=== PATIENT | female | born 1965 | race African-American/Black ===

== ENCOUNTER 2019-02-26 09:48 | Emergency (ER) | payer OTHER ==
[~2019-02-26] VITALS: Ht 182.9 cm; Wt 113.4 kg
--- OUTSIDE RECORDS SUMMARY | 2019-02-26 09:52 | XMS REPORT ---
Author Author [facility] Address Unknown Phone Unavailable Care Team Providers Care Try On Baster Name Role Phone MAR MATIAS Unavailable Unavailable Payers Payer Name Policy Type Policy Number Effective Date Expiration Date Problems This patient has no known problems. Allergies, Adverse Reactions, Alerts Allergy Name Allergy Type Status Severity Reaction(s) Onset Date Inactive Date Treating Clinician Comments No Known Allergies DA Active U 2019-02-15 00:00:00 shellfish derived FA Active 2019-01-14 00:00:00 Iodinated Contrast- Oral and IV Dye DA Active ID 2019-01-14 00:00:00 Penicillins DA Active ID 2019-01-14 00:00:00 Sulfa (Sulfonamide Antibiotics) DA Active ID 2019-01-14 00:00:00 Iodinated Contrast- Oral and IV Dye DA Active ID 2018-12-29 00:00:00 Penicillins DA Active ID 2018-12-29 00:00:00 Sulfa (Sulfonamide Antibiotics) DA Active ID 2018-12-29 00:00:00 Iodinated Contrast- Oral and IV Dye DA Active ID 2018-12-28 00:00:00 Penicillins DA Active ID 2018-12-28 00:00:00 Sulfa (Sulfonamide Antibiotics) DA Active ID 2018-12-28 00:00:00 No Known Contrast Allergies DA Active U 2001-07-01 00:00:00 No Known Other Allergies DA Active U 2001-07-01 00:00:00 PENICILLIN DA Active U 2001-07-01 00:00:00 SHELLFISH DA Active U 2001-07-01 00:00:00 SULFA DRUGS DA Active U 2001-07-01 00:00:00 Medications This patient has no known medications. Results Test Description Test Time Test Comments Text Results Atomic Results Result Comments BASIC METABOLIC PANEL 2019-02-15 18:25:00 SODIUM (test code=NA) 146 mmol/L 136-145 POTASSIUM (test code=K) 3.8 mmol/L 3.5-5.1 CHLORIDE (test code=CL) 114.0 mmol/L 98-107 CARBON DIOXIDE (test code=CO2) 24.0 mmol/L 21-32 ANION GAP (test code=GAP) 11.8 10-20 GLUCOSE (test code=GLU) 94 mg/dL 74-106 BLOOD UREA NITROGEN (test code=BUN) 17 mg/dL 7-18 GLOMERULAR FILTRATION RATE (test code=GFR) > 60 mL/min >=60 Estimated GFR by using Modified MDRD formula.Chronic kidney disease is defined as either kidney damageor GFR <60 mL/min/1.73 m2 for >3 months. CREATININE (test code=CREAT) 1.00 mg/dL 0.55-1.02 Note change in reference range due to change in reagent. BUN/CREATININE RATIO (test code=BUN/CREA) 17.5 10-20 CALCIUM (test code=CA) 8.9 mg/dL 8.5-10.1 HCG SERUM [id number] 18:25:00* Test Item Value Reference Range Comments HCG SERUM QUAL (test code=HCGQL) NEGATIVE BASIC METABOLIC [id number] 18:25:00* Test Item Value Reference Range Comments SODIUM (test code=NA) 146 mmol/L 136-145 POTASSIUM (test code=K) 3.8 mmol/L 3.5-5.1 CHLORIDE (test code=CL) 114.0 mmol/L 98-107 CARBON DIOXIDE (test code=CO2) 24.0 mmol/L 21-32 ANION GAP (test code=GAP) 11.8 10-20 GLUCOSE (test code=GLU) 94 mg/dL 74-106 BLOOD UREA NITROGEN (test code=BUN) 17 mg/dL 7-18 GLOMERULAR FILTRATION RATE (test code=GFR) > 60 mL/min >=60 Estimated GFR by using Modified MDRD formula.Chronic kidney disease is defined as either kidney damageor GFR <60 mL/min/1.73 m2 for >3 months. CREATININE (test code=CREAT) 1.00 mg/dL 0.55-1.02 Note change in reference range due to change in reagent. BUN/CREATININE RATIO (test code=BUN/CREA) 17.5 10-20 CALCIUM (test code=CA) 8.9 mg/dL 8.5-10.1 HCG SERUM [id number] 18:25:00* Test Item Value Reference Range Comments HCG SERUM QUAL (test code=HCGQL) NEGATIVE NEGATIVE This HCGQL test is NOT applicable for MALE patients.Check with nurse about probable order error.If Tumor Marker Test needed, nurse should order test "HCGTU"(Test #550.03774) BASIC METABOLIC [id number] 18:21:00* Test Item Value Reference Range Comments SODIUM (test code=NA) 146 mmol/L 136-145 POTASSIUM (test code=K) 3.8 mmol/L 3.5-5.1 CHLORIDE (test code=CL) 114.0 mmol/L 98-107 CARBON DIOXIDE (test code=CO2) mmol/L 21-32 ANION GAP (test code=GAP) 10-20 GLUCOSE (test code=GLU) mg/dL 74-106 BLOOD UREA NITROGEN (test code=BUN) mg/dL 7-18 GLOMERULAR FILTRATION RATE (test code=GFR) mL/min >=60 CREATININE (test code=CREAT) mg/dL 0.55-1.02 BUN/CREATININE RATIO (test code=BUN/CREA) 10-20 CALCIUM (test code=CA) mg/dL 8.5-10.1 HCG SERUM [id number] 18:21:00* Test Item Value Reference Range Comments HCG SERUM QUAL (test code=HCGQL) NEGATIVE CBC W/AUTO [id number] 18:18:00* Test Item Value Reference Range Comments WHITE BLOOD CELL (test code=WBC) 6.1 K/mm3 4.5-12.5 RED BLOOD CELL (test code=RBC) 4.70 mill/mm3 3.7-5.2 HEMOGLOBIN (test code=HGB) 14.4 gram/dL 11.5-15.5 HEMATOCRIT (test code=HCT) 44.9 % 36.0-46.0 MEAN CELL VOLUME (test code=MCV) 95.5 fL 80-98 MEAN CELL HGB (test code=MCH) 30.6 picogram 27.0-33.0 MEAN CELL HGB CONCETRATION (test code=MCHC) 32.1 gram/dL 33.0-36.0 RED CELL DISTRIBUTION WIDTH (test code=RDW) 13.8 % 11.6-16.2 RED CELL DISTRIBUTION WIDTH SD (test code=RDW-SD) 49.1 fL 37.0-51.0 PLATELET COUNT (test code=PLT) 244 K/mm3 150-450 MEAN PLATELET VOLUME (test code=MPV) 9.4 fL 6.7-11.0 NEUTROPHIL % (test code=NT%) 59.0 % 39.0-69.0 IMMATURE GRANULOCYTE % (test code=IG%) 0.2 % 0.0-5.0 LYMPHOCYTE % (test code=LY%) 32.1 % 25.0-55.0 MONOCYTE % (test code=MO%) 6.4 % 0.0-10.0 EOSINOPHIL % (test code=EO%) 1.3 % 0.0-5.0 BASOPHIL % (test code=BA%) 1.0 % 0.0-1.0 NUCLEATED RBC % (test code=NRBC%) 0.0 % 0-0 NEUTROPHIL # (test code=NT#) 3.62 K/mm3 1.8-7.7 IMMATURE GRANULOCYTE # (test code=IG#) 0.01 x10 3/uL 0-0.03 LYMPHOCYTE # (test code=LY#) 1.97 K/mm3 1.0-5.0 MONOCYTE # (test code=MO#) 0.39 K/mm3 0-0.8 EOSINOPHIL # (test code=EO#) 0.08 K/mm3 0.0-0.5 BASOPHIL # (test code=BA#) 0.06 K/mm3 0.0-0.2 NUCLEATED RBC # (test code=NRBC#) 0.00 K/mm3 0.0-0.1 CBC W/AUTO [id number] 18:16:00* Test Item Value Reference Range Comments WHITE BLOOD CELL (test code=WBC) K/mm3 4.5-12.5 RED BLOOD CELL (test code=RBC) mill/mm3 3.7-5.2 HEMOGLOBIN (test code=HGB) 14.4 gram/dL 11.5-15.5 HEMATOCRIT (test code=HCT) 44.9 % 36.0-46.0 MEAN CELL VOLUME (test code=MCV) fL 80-98 MEAN CELL HGB (test code=MCH) picogram 27.0-33.0 MEAN CELL HGB CONCETRATION (test code=MCHC) gram/dL 33.0-36.0 RED CELL DISTRIBUTION WIDTH (test code=RDW) % 11.6-16.2 RED CELL DISTRIBUTION WIDTH SD (test code=RDW-SD) fL 37.0-51.0 PLATELET COUNT (test code=PLT) K/mm3 150-450 MEAN PLATELET VOLUME (test code=MPV) fL 6.7-11.0 NEUTROPHIL % (test code=NT%) % 39.0-69.0 IMMATURE GRANULOCYTE % (test code=IG%) % 0.0-5.0 LYMPHOCYTE % (test code=LY%) % 25.0-55.0 MONOCYTE % (test code=MO%) % 0.0-10.0 EOSINOPHIL % (test code=EO%) % 0.0-5.0 BASOPHIL % (test code=BA%) % 0.0-1.0 NEUTROPHIL # (test code=NT#) K/mm3 1.8-7.7 LYMPHOCYTE # (test code=LY#) K/mm3 1.0-5.0 MONOCYTE # (test code=MO#) K/mm3 0-0.8 EOSINOPHIL # (test code=EO#) K/mm3 0.0-0.5 BASOPHIL # (test code=BA#) K/mm3 0.0-0.2 - CT HEAD/BRAIN W/O [id number] 18:02:00 Name: GRECIA SALEEM [facility] : 1965 Age/S: 53 / F Kevin Joshi Unit #: [id number] Loc: [place] [address] Phys: Krista Obrien MD Acct: [id number] Dis Date: Status: REG ER PHONE #: [phone] Exam Date: 02/15/2019 1759 FAX #: [phone] Reason: frontal headache, but hx of brain bleed EXAMS: CPT CODE: [id number] CT HEAD/BRAIN W/O CONT [id number] REASON FOR EXAM: frontal headache, but hx of brain bleed EXAM ORDER DATE: 02/15/2019 5:13 PM Ordering Ernestina: Krista Obrien MD PROCEDURE: - CT HEAD/BRAIN W/O CONT COMPARISON: FINDINGS: CT images of the brain were obtained without IV contrast. Dose modulation, iterative reconstruction, and/or weight based adjustment of the MA/KV was utilized to reduce the radiation dose to as low as reasonably achievable. The brain parenchyma is within normal limits. The benjamin-white matter delineation is unremarkable. The ventricles, cisterns, and sulci are unremarkable. There is no evidence of hemorrhage, mass, mass effect. There is no evidence of acute or old infarct. Craniotomy defect in the left parietal lobe. IMPRESSION: Unremarkable brain. at 1802 Reported and signed by: William Bourne M.D. CC: Joseph Obrien MD Technologist:Denise Urena RT(R); TERRIE Del Rosario CTDI: DLP: Trnscb Date/Time: 02/15/2019 (1801) [email or web address] Orig Print D/T: S: 02/15/2019 (1804) PAGE 1 Signed Report - NM MYOCRD SPECT R/S [id number] 14:38:00 Patient Name: GRECIA SALEEM Unit No: [id number] EXAMS: CPT CODE: [id number] NM MYOCRD SPECT R/S MULT 45002 Stress Myocardial P erfusion Imaging using stress protocol Details of the hemodynamics includi ng stress induced BP, HR and EKG changes are reported separately. Indication: Angina/ASVD 13 and 32.1 sestamibi was used for rest and stress images, respectively, according to the protocol. Stress and resting myocardial perfusion images show mild fixed defect in the lateral wall No stress induced significantly reversible perfusion defects are noted. Gated images shows no regional wall gilles on abnormalities. Calculated LVEF was 57% (normal value 55-60%) Impression: 1) No stress induced reversible perfusion defects 2) LVEF was 57% Electronically Signed by Fabricio Gibson MD on at 1438 Reported and signed by: Fabricio Gibson MD Nuclear Medicine Cardiology exams performed on dual head cameras with appropriate software for processing and reporting. CC: Nicholas Leigh MD; Khari Cheung NAME: GRECIA SALEEM [facility] PHYS: Khari Hinojosa MD [address] [place] [address] : 1965 AGE: 53 SEX: F [place] [address] LOC: B.164 W PHONE #: [phone] EXAM DATE: 01/15/2019 STATUS: ADM IN FAX #: [phone] RAD NO: DC Dt: PAGE 1 Signed Report Patient Name: GRECIA COOMBS Unit No: [id number] EXAMS: CPT CODE: [id number] NM MYOCRD SPECT R/S MULT [id number] <Continued> Technologist: Emanuel Espinosa Transcribed Date/Time: 01/15/2019 (8887) Susan Lamb.[email or web address] Orig Print D/T: S: 01/15/2019 (1054) NATANAEL Cheung NAME: GRECIA SALEEM [facility] PHYS: Khari Hinojosa MD [address] [place], [place] [address]VD : 1965 AGE: 53 SEX: F [place] [address] LOC: BLarry164 W PHONE #: [phone] EXAM DATE: 01/15/2019 STATUS: ADM IN FAX #: [phone] RAD NO: DC Dt: PAGE 2 Signed Report [id number] 12:08:00* Test Item Value Reference Range Comments D-DIMER (test code=DDIMER) 507 FEUng/mL 0-500 THE CUT-OFF VALUE FOR EXCLUSION OF TXB=343 FEU ng/mLNOTE: This method must be used with additional tests in theevaluation of VTE and should not be used to exclude VTE withpretest probability alone. LIPID PROFILE (CORONARY RISK)2019-01-15 04:59:00* Test Item Value Reference Range Comments TRIGLYCERIDES (test code=TRIG) 297 MG/DL 0-150 HIGH RISK TRIGLYCERIDE 200-499 MG/DLReference intervals provided by The National CholesterolEducation Program Adult Treatment Panel III (NCEP-ATP III).Results may be depressed if patient is takingN-Acetylcysteine (NAC) and Metamizole (Dipyrone). CHOLESTEROL (test code=CHOL) 202 MG/DL 133-200 CHOLESTEROL REFERENCE RANGE: AGE: MODERATE RISK HIGH RISK 20-29 206-227 MG/DL >227 MG/DL 30-39 228-247 MG/DL >247 MG/DL 40 & OVER 248-268 MG/DL >268 MG/DL CHOLESTEROL/HDL RATIO (test code=CHOLHDL) 5.05 RATIO >0 REFERENCE RANGE: MALE FEMALE 1/2 AVG RISK 3.43 3.27 AVG RISK 4.97 4.44 2X AVG RISK 9.55 7.05 3X AVG RISK 23.39 11.04 HDL CHOLESTEROL (test code=HDL) 40 MG/DL 40-59 Results maybe depressed if patient is taking Metamizole(Dipyrone). NON-HDL CHOLESTEROL (test code=NHDL) 162 mg/dL <130 Patients with CHD or CHD risk LDL: <70 mg/dL nonHDL: <100 mg/dLPatients with 2+ risk factors LDL: <130 mg/dL nonHDL: <160 mg/dLPatients with 0-1 risk factors LDL: <160 mg/dL nonHDL: <190 mg/dL LIPOPROTEIN LDL (test code=LDL) 103 MG/DL 0-129 LDL/HDL (test code=LDL/HDL) 2.57 Ratio 1.48-3.22 Avg LDL/HDL RISK ASSESSMENT1.47 One-half average3.22 Average5.03 Two times average6.14 Three times average INDEX HEMOLYSIS (test code=HEMINDEX) 1 NORMAL <10 MG Index/DL 1 NORMAL INDEX ICTERIC (test code=ICTINDEX) 1 NORMAL <2 MG Index/DL 1 NORMAL INDEX LIPEMIA (test code=LIPINDEX) 1 NORMAL <50 MG Index/DL 1 NORMAL LIPID PROFILE (CORONARY RISK)2019-01-15 04:56:00* Test Item Value Reference Range Comments TRIGLYCERIDES (test code=TRIG) 297 MG/DL 0-150 HIGH RISK TRIGLYCERIDE 200-499 MG/DLReference intervals provided by The National CholesterolEducation Program Adult Treatment Panel III (NCEP-ATP III).Results may be depressed if patient is takingN-Acetylcysteine (NAC) and Metamizole (Dipyrone). CHOLESTEROL (test code=CHOL) 202 MG/DL 133-200 CHOLESTEROL REFERENCE RANGE: AGE: MODERATE RISK HIGH RISK 20-29 206-227 MG/DL >227 MG/DL 30-39 228-247 MG/DL >247 MG/DL 40 & OVER 248-268 MG/DL >268 MG/DL CHOLESTEROL/HDL RATIO (test code=CHOLHDL) RATIO >0 HDL CHOLESTEROL (test code=HDL) MG/DL 40-59 NON-HDL CHOLESTEROL (test code=NHDL) mg/dL <130 LIPOPROTEIN LDL (test code=LDL) MG/DL 0-129 LDL/HDL (test code=LDL/HDL) Ratio 1.48-3.22 Avg INDEX HEMOLYSIS (test code=HEMINDEX) 1 NORMAL <10 MG Index/DL 1 NORMAL INDEX ICTERIC (test code=ICTINDEX) 1 NORMAL <2 MG Index/DL 1 NORMAL INDEX LIPEMIA (test code=LIPINDEX) 1 NORMAL <50 MG Index/DL 1 NORMAL [id number] 04:54:00* Test Item Value Reference Range Comments CKMB (test code=CKMBT) < 1.0 NG/ML 1.0-3.6 MONOCLONAL CKMB METHODOLOGY. [id number] 04:54:00* Test Item Value Reference Range Comments TROPONIN-I (test code=TROPI) 0.035 NG/ML 0.000-0.045 INTERPRET WITH CAUTION, THIS VALUE EXCEEDS THE LOWER LIMITOF LINEARITY VERIFICATION ESTABLISHED BY THE LABORATORY.An elevated troponin value alone is not sufficient todiagnose a myocardial infarction. Rather, the patient'sclinical presentation (history, physical exam) and ECGshould be used in conjunction with troponin in thediagnostic evaluation of suspected myocardial infarction. Aserial sampling p rotocol is recommended to facilitate theidentification of temporal changes in troponin levelscharacteristic of NM. [id number] 04:36:00* Test Item Value Reference Range Comments CKMB (test code=CKMBT) NG/ML 1.0-3.6 [id number] 04:36:00* Test Item Value Reference Range Comments TROPONIN-I (test code=TROPI) 0.035 NG/ML 0.000-0.045 INTERPRET WITH CAUTION, THIS VALUE EXCEEDS THE LOWER LIMITOF LINEARITY VERIFICATION ESTABLISHED BY THE LABORATORY.An elevated troponin value alone is not sufficient todiagnose a myocardial infarction. Rather, the patient'sclinical presentation (history, physical exam) and ECGshould be used in conjunction with troponin in thediagnostic evaluation of suspected myocardial infarction. Aserial sampling p rotocol is recommended to facilitate theidentification of temporal changes in troponin levelscharacteristic of NM. [id number] 22:31:00* Test Item Value Reference Range Comments CKMB (test code=CKMBT) < 1.0 NG/ML 1.0-3.6 MONOCLONAL CKMB METHODOLOGY. [id number] 22:31:00* Test Item Value Reference Range Comments TROPONIN-I (test code=TROPI) 0.022 NG/ML 0.000-0.045 INTERPRET WITH CAUTION, THIS VALUE EXCEEDS THE LOWER LIMITOF LINEARITY VERIFICATION ESTABLISHED BY THE LABORATORY.An elevated troponin value alone is not sufficient todiagnose a myocardial infarction. Rather, the patient'sclinical presentation (history, physical exam) and ECGshould be used in conjunction with troponin in thediagnostic evaluation of suspected myocardial infarction. Aserial sampling p rotocol is recommended to facilitate theidentification of temporal changes in troponin levelscharacteristic of NM. [id number] 22:17:00* Test Item Value Reference Range Comments CKMB (test code=CKMBT) NG/ML 1.0-3.6 [id number] 22:17:00* Test Item Value Reference Range Comments TROPONIN-I (test code=TROPI) 0.022 NG/ML 0.000-0.045 INTERPRET WITH CAUTION, THIS VALUE EXCEEDS THE LOWER LIMITOF LINEARITY VERIFICATION ESTABLISHED BY THE LABORATORY.An elevated troponin value alone is not sufficient todiagnose a myocardial infarction. Rather, the patient'sclinical presentation (history, physical exam) and ECGshould be used in conjunction with troponin in thediagnostic evaluation of suspected myocardial infarction. Aserial sampling p rotocol is recommended to facilitate theidentification of temporal changes in troponin levelscharacteristic of NM. EMERGENCY ROOM [id number] 20:16:00* Test Item Value Reference Range Comments DIAGNOSIS (test code=DIAG) SPECIMENS RCVED SPECIMEN RECEIVED - CT ANGIO [id number] 19:02:00 Patient Name: GRECIA SALEEM Unit No: [id number] EXAMS: CPT CODE: [id number] CT ANGIO HEAD [address]647 HISTORY: headache, fall TECHNIQUE: Axial CT images were obtained from the skull base to the vertex after intravenous contrast utilizing CTA protocol. Axial, coronal and sagittal maximum intensity projection images were created from the data set. One or more of the following dose reduction techniques were used: Automated exposure control, adjustment of the mA and/or kV according to patient size, and/or iterative reconstruction. COMPARISON: None FINDINGS: The petrous, cavernous, and supraclinoid segments of the bilateral internal carotid arteries are normal. The ophthalmic artery origins are visualized and normal. The posterior communicating arteries are not well identified. Anterior and middle cerebral arteries are normal bilaterally. The anterior communicating artery is patent. Both posterior cerebral arteries are normal. The vertebral arteries are patent and codominant. The basilar artery and origins of the bilateral posterior inferior cerebellar arteries, anterior inferior cerebellar arteries, and superior cerebellar arteries are normal. No saccular aneurysm, proxim al arterial cut off, intra-arterial clot, or hemodynamically significant i ntracranial arterial stenosis is present. Axial, coronal and sagittal maximum intensity projection images confirm these findings. Postsurgical changes from left parietal craniotomy are noted. IMPRESSION: Normal head CTA. at 1902 Reported and signed by: Nate Myers M.D. CC: Nicholas Leigh MD Dictated Date/Time: 01/14/2019 (1901) Technologist: Ermelinda Medel CTDI: 26.68 DLP: 620.50 Trnscrpt: 01/14/2019 (1901) [id number] [facility] Jonatan NAME: [address] PHYS: Nicholas [place] [address] : 1965 AGE: 53 SEX: F LOC: B.ERS PHONE #: [phone] EXAM DATE: 01/14/2019 STA TUS: PRE ER FAX #: [phone] RAD #: D/C DT PAGE 1 Signed Report Patient Name: GRECIA SALEEM Unit No: [id number] EXAMS: CPT CODE: [id number] C T ANGIO HEAD [address] <Continued> Orig Print D/T: S: 01/14/2019 (1904) [facility] Jonatan NAME: [address] PHYS: Nicholas Shields MD [place] [address] : 1965 AGE: 53 SEX: F LOC: B.ERS PHONE #: [phone] EXAM DATE: 01/14/2019 STATUS: PRE ER FAX #: [phone] RAD #: D/C DT PAGE 2 Signed Report THYROID STIMULATING [id number] 18:48:00* Test Item Value Reference Range Comments THYROID STIMULATING HORMONE (test code=TSH) 0.777 mc IU/ML 0.340-4.820 - CT HEAD/BRAIN W/O [id number] 18:46:00 Patient Name: GRECIA SALEEM Unit No: [id number] EXAMS: CPT CODE: [id number] CT HEAD/BRAIN W/O CONT [id number] EXAM: - CT HEAD/BRAIN W/O CONT HISTORY: headache, fall, hx of ICH LOCATION: B2 COMPARISON: CT head dated 12/31/2018 TECHNIQUE: Axial tomograms through the brain were obtained without intravenous contrast. Coronal and sagittal reformatted images are provided. All CT scans are performed using radiation dose reduction technique. Technical factors are evaluated and adjusted to insure appropriate moderation of exposure. Automated dose management technology is applied to adjust the radiation dose to minimize exposure while achieving a diagnostic quality image. FINDINGS: The benjamin white matter differentiation is preserved. No hypodensity suggesting acute cerebral infarction is identified, however MRI is more sensitive if this diagnosis is clinically suspected. No intracranial hemorrhage or extra-axial collection is identified. There is no mass or mass effect. The ventricles and basal cisterns are age appropriate. The orbits are unremarkable. The visual ized paranasal sinuses and mastoid air cells are clear. No acute f racture is present. Postsurgical changes from prior left parietal craniot maryana are noted. IMPRESSION: No acute intracrani al abnormality. at 1846 Reported and signed by: Sarai Gillette MD CC: Nicholas Leigh MD Dictated Date/Time: (1845) Technologist: Ermelinda Medel CTDI: 45.64 DLP: 7 57.79 Trnscrpt: 01/14/2019 (1845) [email or web address] NATANAEL rodriguez NAME: [address] PHYS: [place] [address] : 1965 AGE: 53 SEX: F LOC: B.ERS PHONE #: [phone] EXAM DATE: 01/14/2019 STATUS: PRE ER FAX #: [phone] RAD #: D/C DT PAGE 1 Signed Report Patient Name: GRECIA SALEEM Unit No: [id number] EXAMS: CPT CODE: [id number] CT HEAD/BRAIN W/O CONT [id number] <Continued> Orig Print D/T: S: 01/14/2019 (1848) NATANAEL Cheung NAME: [address] PHYS: Nicholas Shields MD [place] [address] : 1965 AGE: 53 SEX: F [facility] [id number] LOC: [place] PHONE #: [phone] EXAM DATE: 01/14/2019 STATUS: PRE ER FAX #: [phone] RAD #: D/C DT PAGE 2 Signed Report CREATINE KINASE (CK)2019-01-14 18:38:00* Test Item Value Reference Range Comments CREATINE KINASE (CK) (test code=CK) 176 Unit/L 26-192 COMPREHENSIVE METABOLIC [id number] 18:30:00* Test Item Value Reference Range Comments SODIUM (test code=NA) 140.0 mmol/L 133-144 POTASSIUM (test code=K) 4.0 mmol/L 3.5-5.1 CHLORIDE (test code=CL) 107 mmol/L 95-105 CARBON DIOXIDE (test code=CO2) 28 mmol/L 21-32 ANION GAP (test code=GAP) 5.0 GAP calc 4.0-15.0 GLUCOSE (test code=GLU) 108 MG/DL 70-110 BLOOD UREA NITROGEN (test code=BUN) 15 MG/DL 7-18 GLOMERULAR FILTRATION RATE (test code=GFR) 94 estGFR >60 The estimated glomerular filtration rate is computed usingpatient race, age, sex, and serum creatinine. If any of theneeded data elements are missing the Laboratory can notcompute an estimation of the glomerular filtration rate.The GFR value units=ml/min/1.73 meter squared. EstimatedGFR values above 60 should be interpreted as >60, not anexact number.--- DRUG DOSAGE ALERT --- Drug dosage adjustments utilize different calculationparameters. CREATININE (test code=CREAT) 0.78 MG/DL 0.55-1.30 Results may be depressed if patient is takingN-Acetylcysteine (NAC) and Metamizole (Dipyrone). TOTAL PROTEIN (test code=PROT) 7.9 G/DL 6.4-8.2 ALBUMIN (test code=ALB) 3.3 G/DL 3.4-5.0 ALBUMIN/GLOBULIN RATIO (test code=A/G) 0.7 RATIO 1.2-2.2 CALCIUM (test code=CA) 8.1 MG/DL 8.5-10.1 BILIRUBIN TOTAL (test code=BILT) 0.12 MG/DL 0.00-1.00 BILIRUBIN DIRECT (test code=BILD) < 0.10 MG/DL 0.00-0.30 BILIRUBIN INDIRECT (test code=BILIND) CALC JONATHAN MG/DL 0.2-1.3 SGOT/AST (test code=AST) 18 Unit/L 15-37 SGPT/ALT (test code=ALT) 30 Unit/L 12-78 ALKALINE PHOSPHATASE TOTAL (test code=ALKP) 81 Unit/L 45-117 INDEX HEMOLYSIS (test code=HEMINDEX) 2 TRACE 10-25 MG Index/DL 1 NORMAL INDEX ICTERIC (test code=ICTINDEX) 1 NORMAL <2 MG Index/DL 1 NORMAL INDEX LIPEMIA (test code=LIPINDEX) 1 NORMAL <50 MG Index/DL 1 NORMAL [id number] 18:30:00* Test Item Value Reference Range Comments CKMB (test code=CKMBT) < 1.0 NG/ML 1.0-3.6 MONOCLONAL CKMB METHODOLOGY. [id number] 18:30:00* Test Item Value Reference Range Comments TROPONIN-I (test code=TROPI) 0.034 NG/ML 0.000-0.045 INTERPRET WITH CAUTION, THIS VALUE EXCEEDS THE LOWER LIMITOF LINEARITY VERIFICATION ESTABLISHED BY THE LABORATORY.An elevated troponin value alone is not sufficient todiagnose a myocardial infarction. Rather, the patient'sclinical presentation (history, physical exam) and ECGshould be used in conjunction with troponin in thediagnostic evaluation of suspected myocardial infarction. Aserial sampling p rotocol is recommended to facilitate theidentification of temporal changes in troponin levelscharacteristic of NM. B-TYPE NATRIURETIC [id number] 18:28:00* Test Item Value Reference Range Comments B-TYPE NATRIURETIC PEPTIDE (test code=BNP) 37.95 PG/ML 0.00-100.00 COMPREHENSIVE METABOLIC [id number] 18:17:00* Test Item Value Reference Range Comments SODIUM (test code=NA) 140.0 mmol/L 133-144 POTASSIUM (test code=K) 4.0 mmol/L 3.5-5.1 CHLORIDE (test code=CL) 107 mmol/L 95-105 CARBON DIOXIDE (test code=CO2) 28 mmol/L 21-32 ANION GAP (test code=GAP) 5.0 GAP calc 4.0-15.0 GLUCOSE (test code=GLU) 108 MG/DL 70-110 BLOOD UREA NITROGEN (test code=BUN) 15 MG/DL 7-18 GLOMERULAR FILTRATION RATE (test code=GFR) 94 estGFR >60 The estimated glomerular filtration rate is computed usingpatient race, age, sex, and serum creatinine. If any of theneeded data elements are missing the Laboratory can notcompute an estimation of the glomerular filtration rate.The GFR value units=ml/min/1.73 meter squared. EstimatedGFR values above 60 should be interpreted as >60, not anexact number.--- DRUG DOSAGE ALERT --- Drug dosage adjustments utilize different calculationparameters. CREATININE (test code=CREAT) 0.78 MG/DL 0.55-1.30 Results may be depressed if patient is takingN-Acetylcysteine (NAC) and Metamizole (Dipyrone). TOTAL PROTEIN (test code=PROT) 7.9 G/DL 6.4-8.2 ALBUMIN (test code=ALB) 3.3 G/DL 3.4-5.0 ALBUMIN/GLOBULIN RATIO (test code=A/G) 0.7 RATIO 1.2-2.2 CALCIUM (test code=CA) 8.1 MG/DL 8.5-10.1 BILIRUBIN TOTAL (test code=BILT) 0.12 MG/DL 0.00-1.00 BILIRUBIN DIRECT (test code=BILD) < 0.10 MG/DL 0.00-0.30 BILIRUBIN INDIRECT (test code=BILIND) CALC JONATHAN MG/DL 0.2-1.3 SGOT/AST (test code=AST) 18 Unit/L 15-37 SGPT/ALT (test code=ALT) 30 Unit/L 12-78 ALKALINE PHOSPHATASE TOTAL (test code=ALKP) 81 Unit/L 45-117 INDEX HEMOLYSIS (test code=HEMINDEX) 2 TRACE 10-25 MG Index/DL 1 NORMAL INDEX ICTERIC (test code=ICTINDEX) 1 NORMAL <2 MG Index/DL 1 NORMAL INDEX LIPEMIA (test code=LIPINDEX) 1 NORMAL <50 MG Index/DL 1 NORMAL [id number] 18:17:00* Test Item Value Reference Range Comments CKMB (test code=CKMBT) NG/ML 1.0-3.6 [id number] 18:17:00* Test Item Value Reference Range Comments TROPONIN-I (test code=TROPI) 0.034 NG/ML 0.000-0.045 INTERPRET WITH CAUTION, THIS VALUE EXCEEDS THE LOWER LIMITOF LINEARITY VERIFICATION ESTABLISHED BY THE LABORATORY.An elevated troponin value alone is not sufficient todiagnose a myocardial infarction. Rather, the patient'sclinical presentation (history, physical exam) and ECGshould be used in conjunction with troponin in thediagnostic evaluation of suspected myocardial infarction. Aserial sampling p rotocol is recommended to facilitate theidentification of temporal changes in troponin levelscharacteristic of NM. - XR CHEST 1 [id number] 18:11:00 FAX: Nicholas Rojo MD [phone] Edwards: St: PRE Patient Na me: LEW SALEEMA Unit No: [id number] EXAMS: CPT CODE: [id number] XR CHEST 1 V 75735 EXAM: XR Chest 1 View INDICATION: headache, fall LOCATION CODE: B2 CO MPARISON: Chest radiograph dated 12/29/2018 TECHNIQUE: Frontal view of the chest was obtained. FINDINGS: The lungs are clear. There is no pleural effusion or pneumothorax. The cardiomediasti nal silhouette is unchanged. No acute osseous abnormality is identified. IMPRESSION: No acute cardiopulmonary abnormality. at 1811 Reported and signed by: Sarai Gillette MD CC: Nicholas Leigh MD Dictated Date/Time: 01/14/2019 (1810)Technologist: William Cerrato - KIMBALL Transcribed Date/Time: 01/14/2019 (1810) By: [email or web address] Orig Print D/T: S: 01/14/2019 (1813) [facility] Jonatan NAME: GRECIA SALEEM [address] [place] [address] PHYS: Nicholas Shields MD [place], [place] [address] : 1965 AGE: 53 SEX: F LOC: CARMEN PHONE #: [phone] EXAM DATE: 01/14/2019 STATUS: PRE ER FAX #: [phone] RAD NO: DC Dt: PAGE 1 Signed Report COMPREHENSIVE METABOLIC [id number] 18:10:00* Test Item Value Reference Range Comments SODIUM (test code=NA) 140.0 mmol/L 133-144 POTASSIUM (test code=K) 4.0 mmol/L 3.5-5.1 CHLORIDE (test code=CL) 107 mmol/L 95-105 CARBON DIOXIDE (test code=CO2) 28 mmol/L 21-32 ANION GAP (test code=GAP) 5.0 GAP calc 4.0-15.0 GLUCOSE (test code=GLU) 108 MG/DL 70-110 BLOOD UREA NITROGEN (test code=BUN) 15 MG/DL 7-18 CREATININE (test code=CREAT) MG/DL 0.55-1.30 TOTAL PROTEIN (test code=PROT) G/DL 6.4-8.2 ALBUMIN (test code=ALB) 3.3 G/DL 3.4-5.0 ALBUMIN/GLOBULIN RATIO (test code=A/G) RATIO 1.2-2.2 CALCIUM (test code=CA) 8.1 MG/DL 8.5-10.1 BILIRUBIN TOTAL (test code=BILT) MG/DL 0.00-1.00 BILIRUBIN DIRECT (test code=BILD) MG/DL 0.00-0.30 BILIRUBIN INDIRECT (test code=BILIND) MG/DL 0.2-1.3 SGOT/AST (test code=AST) Unit/L 15-37 SGPT/ALT (test code=ALT) Unit/L 12-78 ALKALINE PHOSPHATASE TOTAL (test code=ALKP) Unit/L 45-117 INDEX HEMOLYSIS (test code=HEMINDEX) 2 TRACE 10-25 MG Index/DL 1 NORMAL INDEX ICTERIC (test code=ICTINDEX) 1 NORMAL <2 MG Index/DL 1 NORMAL INDEX LIPEMIA (test code=LIPINDEX) 1 NORMAL <50 MG Index/DL 1 NORMAL [id number] 18:10:00* Test Item Value Reference Range Comments TROPONIN-I (test code=TROPI) NG/ML 0.000-0.045 TROPONIN I [id number] 18:01:00* Test Item Value Reference Range Comments TROPONIN I RAPID (test code=TROPIRAP) 0.04 NG/ML 0.00-0.07 An elevated troponin value alone is not sufficient todiagnose a myocardial infarction. Rather, the patient'sclinical presentation (history, physical exam) and ECGshould be used in conjunction with troponin in thediagnostic evaluation of suspected myocardial infarction. Aserial sampling protocol is recommended to facilitate theidentification of temporal changes in troponin levelscharacteristic of NM. CBC W/AUTO [id number] 17:56:00* Test Item Value Reference Range Comments WHITE BLOOD CELL (test code=WBC) 5.9 K/mm3 4.1-12.1 RED BLOOD CELL (test code=RBC) 4.02 M/mm3 3.8-5.5 HEMOGLOBIN (test code=HGB) 12.6 G/DL 10.6-15.8 HEMATOCRIT (test code=HCT) 39.1 % 31.8-47.4 MEAN CELL VOLUME (test code=MCV) 97.3 fL 80.1-101.1 MEAN CELL HGB (test code=MCH) 31.3 pg 25.3-35.3 MEAN CELL HGB CONCETRATION (test code=MCHC) 32.2 G/DL 32.7-35.1 RED CELL DISTRIBUTION WIDTH (test code=RDW) 15.2 % 12.2-16.4 RED CELL DISTRIBUTION WIDTH (test code=RDW-SD) 54.2 fL 36.4-46.3 PLATELET COUNT (test code=PLT) 231 K/mm3 155-337 MEAN PLATELET VOLUME (test code=MPV) 9.2 fL 6.8-11.2 GRANULOCYTE % (test code=GR%) 60.3 % 37.8-82.6 IMMATURE GRANULOCYTE % (test code=IG%) 0.3 % 0.0-2.0 LYMPHOCYTE % (test code=LY%) 28.9 % 14.1-45.4 MONOCYTE % (test code=MO%) 7.9 % 2.5-11.7 EOSINOPHIL % (test code=EO%) 1.9 % 0.0-6.2 BASOPHIL % (test code=BA%) 0.7 % 0.0-2.1 NUCLEATED RBC % (test code=NRBC%) 0.0 /100WBC% 0.0-1.0 GRANULOCYTE # (test code=GR#) 3.57 k/mm3 2.0-13.7 IMMATURE GRANULOCYTE # (test code=IG#) 0.02 K/mm3 0.00-0.03 LYMPHOCYTE # (test code=LY#) 1.71 K/mm3 0.6-3.8 MONOCYTE # (test code=MO#) 0.47 K/mm3 0.11-0.59 EOSINOPHIL # (test code=EO#) 0.11 K/mm3 0.0-0.4 BASOPHIL # (test code=BA#) 0.04 K/mm3 0.0-0.1 NUCLEATED RBC # (test code=NRBC#) 0.00 K/mm3 0.0-0.05 CHEMISTRY 7 [id number] 17:55:00* Test Item Value Reference Range Comments IONIZED CALCIUM (test code=CAIABG) mmol/L 1.13-1.32 ISTAT-TCO2 VENOUS (test code=TCO2VP) MMOL/L 21-32 ISTAT-SODIUM (test code=NAP) MMOL/L 135-148 ISTAT-POTASSIUM (test code=KP) MMOL/L 3.5-5.9 ISTAT-CHLORIDE (test code=CLP) MMOL/L 98-106 ISTAT-ANION GAP (test code=GAPP) MEQ/L 10-20 ISTAT-GLUCOSE (test code=GLUP) MG/DL 70-119 ISTAT-BUN (test code=BUNP) MG/DL 8-28 BEDSIDE CREATININE (test code=CREATBED) MG/DL 0.6-1.2 GLOMERULAR FILTRATION RATE POC (test code=GFRBED) 91 51-120 CHEMISTRY 7 [id number] 17:55:00* Test Item Value Reference Range Comments IONIZED CALCIUM (test code=CAIABG) 1.17 mmol/L 1.13-1.32 ISTAT-TCO2 VENOUS (test code=TCO2VP) 26 MMOL/L 21-32 ISTAT-SAMPLE SOURCE (test code=SRCIST) UNKNOWN SPEC TYPE Descript Specimen ISTAT-SODIUM (test code=NAP) 141 MMOL/L 135-148 ISTAT-POTASSIUM (test code=KP) 4.1 MMOL/L 3.5-5.9 ISTAT-CHLORIDE (test code=CLP) 106 MMOL/L 98-106 ISTAT-ANION GAP (test code=GAPP) 14.0 MEQ/L 10-20 ISTAT-GLUCOSE (test code=GLUP) 103 MG/DL 70-119 ISTAT-BUN (test code=BUNP) 15 MG/DL 8-28 BEDSIDE CREATININE (test code=CREATBED) 0.8 MG/DL 0.6-1.2 GLOMERULAR FILTRATION RATE POC (test code=GFRBED) 91 51-120 URINALYSIS [id number] 22:53:00* Test Item Value Reference Range Comments UA COLOR (test code=COLU) YELLOW DESCRIPT YELLOW UA APPEARANCE (test code=APPU) CLEAR DESCRIPT CLEAR UA GLUCOSE DIPSTICK (test code=DGLUU) NEGATIVE (0) mg/dL (NEG) 0 UA BILIRUBIN DIPSTICK (test code=BILU) NEGATIVE (0) mg/dL (NEG) 0 UA KETONE DIPSTICK (test code=KETU) 0 (NEG) mg/dL (NEG) 0 UA SPECIFIC GRAVITY (test code=SGU) 1.024 SG 1.001-1.035 UA BLOOD DIPSTICK (test code=SANDRA) NEGATIVE (0) mg/DL (NEG) 0 UA PH DIPSTICK (test code=MAYRA) 6.0 pH UNITS 4.6-8.0 UA PROTEIN DIPSTICK (test code=PROU) NEGATIVE (0) mg/dL <30 (1+) UA UROBILINIOGEN DIPSTICK (test code=URO) NORMAL (0) mg/dL <2.0 (1+) UA NITRITE DIPSTICK (test code=TOMASA) NEGATIVE (0) SCREEN NEG UA LEUKOCYTE ESTERASE DIPSTICK (test code=LEUU) 250 (2+) Leuk/mcL (NEG) 0 UA WBC (test code=WBCU) 0-3 #WBC/HPF 0-3 UA RBC (test code=RBCU) 0-3 #RBC/HPF 0-3 UA SQUAMOUS CELLS (test code=SQU) RARE >0 /HPF NONE-SQepi UA MUCUS (test code=MUCU) RARE /LPF NONE COMPREHENSIVE METABOLIC [id number] 22:11:00* Test Item Value Reference Range Comments SODIUM (test code=NA) 138.0 mmol/L 133-144 POTASSIUM (test code=K) 4.3 mmol/L 3.5-5.1 CHLORIDE (test code=CL) 107 mmol/L 95-105 CARBON DIOXIDE (test code=CO2) 29 mmol/L 21-32 ANION GAP (test code=GAP) 2.0 GAP calc 4.0-15.0 GLUCOSE (test code=GLU) 121 MG/DL 70-110 BLOOD UREA NITROGEN (test code=BUN) 19 MG/DL 7-18 GLOMERULAR FILTRATION RATE (test code=GFR) 75 estGFR >60 The estimated glomerular filtration rate is computed usingpatient race, age, sex, and serum creatinine. If any of theneeded data elements are missing the Laboratory can notcompute an estimation of the glomerular filtration rate.The GFR value units=ml/min/1.73 meter squared. EstimatedGFR values above 60 should be interpreted as >60, not anexact number.--- DRUG DOSAGE ALERT --- Drug dosage adjustments utilize different calculationparameters. CREATININE (test code=CREAT) 0.95 MG/DL 0.55-1.30 Results may be depressed if patient is takingN-Acetylcysteine (NAC) and Metamizole (Dipyrone). TOTAL PROTEIN (test code=PROT) 8.4 G/DL 6.4-8.2 ALBUMIN (test code=ALB) 3.3 G/DL 3.4-5.0 ALBUMIN/GLOBULIN RATIO (test code=A/G) 0.6 RATIO 1.2-2.2 CALCIUM (test code=CA) 8.1 MG/DL 8.5-10.1 BILIRUBIN TOTAL (test code=BILT) 0.18 MG/DL 0.00-1.00 BILIRUBIN DIRECT (test code=BILD) < 0.10 MG/DL 0.00-0.30 BILIRUBIN INDIRECT (test code=BILIND) 0.18 MG/DL 0.2-1.3 SGOT/AST (test code=AST) 33 Unit/L 15-37 SGPT/ALT (test code=ALT) 30 Unit/L 12-78 ALKALINE PHOSPHATASE TOTAL (test code=ALKP) 80 Unit/L 45-117 INDEX HEMOLYSIS (test code=HEMINDEX) 4 SMALL 50-200 MG Index/DL 1 NORMAL INDEX ICTERIC (test code=ICTINDEX) 1 NORMAL <2 MG Index/DL 1 NORMAL INDEX LIPEMIA (test code=LIPINDEX) 1 NORMAL <50 MG Index/DL 1 NORMAL CBC W/AUTO [id number] 22:00:00* Test Item Value Reference Range Comments WHITE BLOOD CELL (test code=WBC) 6.5 K/mm3 4.1-12.1 RED BLOOD CELL (test code=RBC) 4.17 M/mm3 3.8-5.5 HEMOGLOBIN (test code=HGB) 13.2 G/DL 10.6-15.8 HEMATOCRIT (test code=HCT) 40.2 % 31.8-47.4 MEAN CELL VOLUME (test code=MCV) 96.4 fL 80.1-101.1 MEAN CELL HGB (test code=MCH) 31.7 pg 25.3-35.3 MEAN CELL HGB CONCETRATION (test code=MCHC) 32.8 G/DL 32.7-35.1 RED CELL DISTRIBUTION WIDTH (test code=RDW) 15.4 % 12.2-16.4 RED CELL DISTRIBUTION WIDTH (test code=RDW-SD) 54.9 fL 36.4-46.3 PLATELET COUNT (test code=PLT) 291 K/mm3 155-337 MEAN PLATELET VOLUME (test code=MPV) 9.6 fL 6.8-11.2 GRANULOCYTE % (test code=GR%) 58.7 % 37.8-82.6 IMMATURE GRANULOCYTE % (test code=IG%) 0.5 % 0.0-2.0 LYMPHOCYTE % (test code=LY%) 30.8 % 14.1-45.4 MONOCYTE % (test code=MO%) 6.3 % 2.5-11.7 EOSINOPHIL % (test code=EO%) 2.8 % 0.0-6.2 BASOPHIL % (test code=BA%) 0.9 % 0.0-2.1 NUCLEATED RBC % (test code=NRBC%) 0.0 /100WBC% 0.0-1.0 GRANULOCYTE # (test code=GR#) 3.82 k/mm3 2.0-13.7 IMMATURE GRANULOCYTE # (test code=IG#) 0.03 K/mm3 0.00-0.03 LYMPHOCYTE # (test code=LY#) 2.00 K/mm3 0.6-3.8 MONOCYTE # (test code=MO#) 0.41 K/mm3 0.11-0.59 EOSINOPHIL # (test code=EO#) 0.18 K/mm3 0.0-0.4 BASOPHIL # (test code=BA#) 0.06 K/mm3 0.0-0.1 NUCLEATED RBC # (test code=NRBC#) 0.00 K/mm3 0.0-0.05 TROPONIN I [id number] 21:51:00* Test Item Value Reference Range Comments TROPONIN I RAPID (test code=TROPIRAP) 0.00 NG/ML 0.00-0.07 An elevated troponin value alone is not sufficient todiagnose a myocardial infarction. Rather, the patient'sclinical presentation (history, physical exam) and ECGshould be used in conjunction with troponin in thediagnostic evaluation of suspected myocardial infarction. Aserial sampling protocol is recommended to facilitate theidentification of temporal changes in troponin levelscharacteristic of NM. CHEMISTRY 7 [id number] 21:45:00* Test Item Value Reference Range Comments IONIZED CALCIUM (test code=CAIABG) mmol/L 1.13-1.32 ISTAT-TCO2 VENOUS (test code=TCO2VP) MMOL/L 21-32 ISTAT-SODIUM (test code=NAP) MMOL/L 135-148 ISTAT-POTASSIUM (test code=KP) MMOL/L 3.5-5.9 ISTAT-CHLORIDE (test code=CLP) MMOL/L 98-106 ISTAT-ANION GAP (test code=GAPP) MEQ/L 10-20 ISTAT-GLUCOSE (test code=GLUP) MG/DL 70-119 ISTAT-BUN (test code=BUNP) MG/DL 8-28 BEDSIDE CREATININE (test code=CREATBED) MG/DL 0.6-1.2 GLOMERULAR FILTRATION RATE POC (test code=GFRBED) 70 51-120 CHEMISTRY 7 [id number] 21:45:00* Test Item Value Reference Range Comments IONIZED CALCIUM (test code=CAIABG) 1.12 mmol/L 1.13-1.32 ISTAT-TCO2 VENOUS (test code=TCO2VP) 28 MMOL/L 21-32 ISTAT-SAMPLE SOURCE (test code=SRCIST) UNKNOWN SPEC TYPE Descript Specimen ISTAT-SODIUM (test code=NAP) 141 MMOL/L 135-148 ISTAT-POTASSIUM (test code=KP) 4.4 MMOL/L 3.5-5.9 ISTAT-CHLORIDE (test code=CLP) 107 MMOL/L 98-106 ISTAT-ANION GAP (test code=GAPP) 11.0 MEQ/L 10-20 ISTAT-GLUCOSE (test code=GLUP) 116 MG/DL 70-119 ISTAT-BUN (test code=BUNP) 22 MG/DL 8-28 BEDSIDE CREATININE (test code=CREATBED) 1.0 MG/DL 0.6-1.2 GLOMERULAR FILTRATION RATE POC (test code=GFRBED) 70 51-120 - CT HEAD/BRAIN W/O [id number] 22:32:00 Patient Name: GRECIA SALEEM Unit No: [id number] EXAMS: CPT CODE: [id number] CT HEAD/BRAIN W/O CONT 50054 AFTER HOURS SERVICE ON: 12/31/2018 10:[address] Scan of the Brain Without Contrast Location Code M12 History: HEADACHE Technique: Scans were performed on a helical scanner pre IV contrast only. The study is limited secondary to lack of intravenous contrast, particularly for evaluation of masses. One or more of the following dose reduction techniques were used: Automated exposure control, adjustment of the mA and/or kV according to patient size, and/or utilization of iterative reconstruction technique. Findings: There is no hydrocephalus. Basal cisterns are patent. There is no intracranial hyperdense hemorrhage. There is no midline shift or mass effect. No effacement of the benjamin-white matter junction to indicate acute infarction. There is a left frontal scalp hematoma. There is an old left parietal craniotomy. There is no skull fracture. Impression: Small left frontal scalp hematoma. No skull fracture or intracranial hemorrhage. at 2232 Reported and signed by: Coni Prieto M.D. CC: Oscar Kaufman MD Dictated Date/Time: 12/31/2018 (2231) Technologist: Kenneth Garrett CTDI: 47.27 DLP: 757.79 Trnscrpt: 12/31/2018 (2231) [email or web address] NATANAEL Cheung NAME: STIEVN[address] PHYS: Oscar [place] [address] : 1965 AGE: 53 SEX: F LOC: KasandraCHANTELL PHONE #: [phone] EXAM DATE: 12/31/2018 STATUS: REG ER FAX #: [phone] RAD #: D/C DT PAGE 1 Signed Report Patient Name: GRECIA SALEEM Unit No: [id number] EXAMS: CPT COD E: [id number] CT HEAD/BRAIN W/O CONT 76511 <Continued> Orig Print D/T: S: 12/31/2018 (2235) NATANAEL Cheung NAME: STIVEN[address] PHYS: Oscar Colon [place] [address] : 1965 AGE: 53 SEX: F LOC: KasandraERS PHONE #: [phone] EXAM DATE: 12/31/2018 STATUS: REG ER FAX #: [phone] RAD #: D/C DT PAGE 2 Signed Report - XR CHEST 1 [id number] 11:41:00 FAX: Carlos Eduardo Cha MD [phone] Edwards: St: REG FAX: William Perez NP [phone] Patient Name: GRECIA SALEEM Unit No: [id number] EXAMS: CPT CODE: [id number] XR CHEST 1 V 67965 LOCATION: T18 EXAM: CHEST 1 VIEW I NDICATION: fall COMPARISON: None. TECHNIQUE: AP joel st radiograph. FINDINGS: Lungs are clear bilaterally without eff usion. Heart is normal in size. Bones and peripheral soft tissues are unre markable. IMPRESSION: Lungs are clear. No acute abnormality. at 1141 Reported and signed by: Daryl Fabian MD CC: William Howard NP Dictated Date/Time: 12/29/2018 (0841)Technologist: Huan Mann Transcribed Date/Time: 12/29/2018 (1141) By: [email or web address] Orig Print D/T: S: 12/29/2018 (0536) NATANAEL Same NAME: GRECIA SALEEM [address] [place] [address] PHYS: - William Howard NP [place], [place] [address] : 1965 AGE: 53 SEX: F LOC: CARMEN PHONE #: [phone] EXAM DATE: 12/29/2018 STATUS: REG ER FAX #: [phone] RAD NO: DC Dt: PAGE 1 Signed Report - XR HIP W/PEL UNI 2+V [id number] 11:33:00 FAX: Carlos Eduardo Cha MD [phone] Edwards: E St: REG FAX: William Perez NP [phone] Patient Name: GRECIA SALEEM Unit No: [id number] EXAMS: CPT CODE: [id number] XR HIP W/PEL UNI 2+[place] [address] X-ray left hip. INDICATION: Pain, fall FINDINGS: No priors. No evidence of an acute fracture or dislocation. Femoral head contour is well preserved. Mild bilateral joint space narrowing. No significant soft tissue abnormality seen. Mild i ncreased sclerosis within the SI joints. IMPRESSION: 1. No definite fracture detected. 2. Mild arthritis. Arcelia ctronically Signed by Ernestina Abbott on 12/29/2018 at 1133 Reported and signed by: Quentin Abbott M.D. CC: William Howard NP Dictated Date/Time: 12/29/2018 (1133)Technologist: Huan Mann Tra nscribed Date/Time: 12/29/2018 (3023) By: [email or web address] Orig Print D/T: S : 12/29/2018 (2804) [facility] Jonatan NAME: GRECIA SALEEM [address] [place] [address] Bl PHY S: SID. - William Howard NP [place], [place] [address] : [birth year] AGE: 53 SEX: F [id number] LOC: CARMEN PHONE #: [phone] EXAM DATE: 12/29/2018 STATUS: REG ER FAX #: [phone] RAD NO: DC Dt: PAGE 1 Signed Report - CT MAXIFAC W/O [id number] 11:17:00 Patient Name: GRECIA SALEEM Unit No: [id number] EXAMS: CPT CODE: [id number] CT MAXIFAC W/O CONTRAST 14191 CT facial bones INDICATION: Fall, head trauma LOCATION: T18 Direct axial [address] images of the facial bones were obtained at 1.25mm slice thickness, with coronal and sagittal reconstruction performed from the original data set. No evidence of facial bone fracture or dislocation. No radiopaque foreign body in the soft tissues. Small polyp or mucous retention cyst right lateral sphenoid sinus. There appears to be a small soft tissue hematoma superior and lateral to the roof of the left orbit. Both ostiomeatal units are patent. The nasal septum is reasonably midline. IMPRESSION: No evidence of facial bone fracture or dislocation. at 1117 Reported and signed by: Luís Leary D.O. CC: William Howard NP Dictated Date/Time: 12/29/2018 (7927) Technologist: Mona Johnson CTDI: 20.07 DLP: 311.87 Trnscrpt: 12/29/2018 (0859) [email or web address] NATANAEL Cheung NAME: OMAR SALEEM[address] PHYS: William Robert Armaan [place] [address] : 1965 AGE: 53 SEX: F LOC: B.ERS PHONE #: [phone] EXAM DATE: 12/29/2018 STATUS: REG ER FAX #: [phone] RAD #: D/C DT PAGE 1 Signed Report Patient Name: GRECIA SALEEM Unit No: [id number] EXAMS: CPT CODE: [id number] CT MAXIFAC W/O CONTRAST 66311 <Continued> Orig Print D/T: S: 12/29/2018 (9249) NATANAEL Cheung NAME: STIV[address] PHYS: ACE HowardWilliam Armaan [place] [address] : 1965 AGE: 53 SEX: F LOC: B.ERS PHONE #: [phone] EXAM DATE: 12/29/2018 STATUS: REG ER FAX #: [phone] RAD #: D/C DT PAGE 2 Signed Report - CT C-SPINE W/O [id number] 10:52:00 Patient Name: GRECIA SALEEM Unit No: [id number] EXAMS: CPT CODE: [id number] CT C-SPINE W/O CONT 32259 LOCATION: T18 EXAM: CT HEAD WITHOUT CONTRAST INDICATION: fall COMPARISON: None. TECHNIQUE: Multiple CT images of the head were obtained. No intravenous contrast was given. Up-to-date CT equipment and radiation dose reduction techniques were utilized. Automatic exposure control was utilized. FINDINGS: No intracranial hemorrhage or extra-axial collection is seen. No midline shift or mass effect is identified. There is no territorial infarct. The ventricles, sulci and cisterns are normal. Left frontal scalp hematoma. No underlying fracture. Left parietal craniotomy changes noted. Paranasal sinuses and mastoid air cells are clear. IMPRESSION: No intracranial hemorrhage or fracture. EXAM: CT CERVI COSME SPINE WITHOUT CONTRAST INDICATION: fall COMPARISON: None. TECHNIQUE: Axially oriented CT images were obtained through the entire cervical spine, without contrast. Coronal and sagittal reformations are also provided. Up-to-date CT equipment an d radiation dose reduction techniques were utilized. Automatic exposure control was utilized. FINDINGS: No fracture, malalignment or other bony abnormality is identified. Prevertebral soft tissues are normal. Deep soft tissue of the neck are normal. Visualized lung apices and upper mediastinum are normal. Limited views of the skull base, paranasal sinuses, and mastoid air cells are u nremarkable. IMPRESSION: No fracture or dislocation of the cer vical spine. at 1052 Reported and signed by: Daryl Fabian MD [facility] Jonatan NAME: GRECIA SALEEM [address] [place] [address] PHYS: William Robert NP, [place] [address] : 1965 AGE: 53 SEX: F LOC: CARMEN PHONE #: [phone] EXAM DATE: 12/29/2018 STATUS: REG ER FAX #: [phone] RAD #: D/C DT PAGE 1 Signed Report (CONTINUED) Patient Name: GRECIA SALEEM Unit No: [id number] EXAMS: CPT CODE: [id number] CT C-SPINE W/O CONT 98491 <Continued> CC: William Howard NP Dictated Date/Time: 12/29/2018 (1052) Technologist: Mona Johnson CTDI: 26.62 DLP: 498.43 Trnscrpt: 12/29/2018 (1052) [email or web address] NATANAEL Cheung NAME: GRECIA SALEEM [address] [place] [address] PHYS: Wliliam Robert NP [place], [place] [address] : 1965 AGE: 53 SEX: F LOC: CARMEN PHONE #: [phone] EXAM DATE: 12/29/2018 STATUS: REG ER FAX #: [phone] RAD #: D/C DT PAGE 2 Signed Report Patient Name: GRECIA SALEEM Unit No: [id number] EXAMS: CPT CODE: [id number] CT C-SPINE W/O CONT 14761 <Continued> Orig Print D/T: S: 12/29/2018 (1056) [facility] Jonatan NAME: GRECIA SALEEM [address] [place] [address] Blvd PHYS: ACE HowardWilliam Crook [place] [address] : 1965 AGE: 53 SEX: F LOC: [facility] PHONE #: [phone] EXAM DATE: 12/29/2018 STATUS: [facility] ER FAX #: [phone] RAD #: D/C DT PAGE 3 Signed Report - CT HEAD/BRAIN W/O [id number] 10:52:00 Patient Name: GRECIA SALEEM Unit No: [id number] EXAMS: CPT CODE: [id number] CT HEAD/BRAIN W/O CONT 68878 LOCATION: T18 EXAM: CT HEAD WITHOUT CONTRAST INDICATION: fall COMPARISON: None. TECHNIQUE: Multiple CT images of the head were obtained. No intravenous contrast was given. Up-to-date CT equipment and radiation dose reduction techniques were utilized. Automatic exposure control was utilized. FINDINGS: No intracranial hemorrhage or extra-axial collection is seen. No midline shift or mass effect is identified. There is no territorial infarct. The ventricles, sulci and cisterns are normal. Left frontal scalp hematoma. No underlying fracture. Left parietal craniotomy changes noted. Paranasal sinuses and mastoid air cells are clear. IMPRESSION: No intracranial hemorrhage or fracture. EXAM: CT CERVICAL SPINE WITHOUT CONTRAST INDICATION: fall COMPARISON: None. TECHNIQUE: Axially oriented CT images were obtained through the entire cervical spine, without contrast. Coronal and sagittal reformations are also provided. Up-to-date CT equipment and radiation dose reduction techniques were utilized. Automatic exposure control was utilized. FINDINGS: No fracture, malalignment or other bony abnormality is identified. Prevertebral soft tissues are normal. Deep soft tissue of the neck are normal. Visualized lung apices and upper mediastinum are normal. Limited views of the skull base, paranasal sinuses, and mastoid air cells are u nremarkable. IMPRESSION: No fracture or dislocation of the cer vical spine. at 1052 Reported and signed by: MD MENDY Sanchez [place] NAME: [address] PHYS: [place] [address] : 1965 AGE: 53 SEX: F LOC: B.ERS PHONE #: EXAM DATE: 12/29/2018 STATUS: REG ER FAX #: [phone] RAD #: D/C DT PAGE 1 Signed Report (CONTINUED) Patient Name: GRECIA SALEEM Unit No: [id number] EXAMS: CPT CODE: [id number] CT HEAD/BRAIN W/O CONT 81784 <Continued> CC: William Howard NP Dictated Date/Time: 12/29/2018 (105) Technologist: Mona Johnson CTDI: 43.45 DLP: 706.03 Trnscrpt: 12/29/2018 (1052) [id number] NATANAEL Cheung NAME: [address] PHYS: William Robert NP, [place] [address] : 1965 AGE: 53 SEX: F LOC: B.ERS PHONE #: [phone] EXAM DATE: 12/29/2018 STATUS: REG ER FAX #: [phone] RAD #: D/C DT PAGE 2 Signed Report Patient Name: GRECIA SALEEM Unit No: [id number] EXAMS: CPT CODE: [id number] CT HEAD/BRAIN W/O CONT 45318 <Continued> Orig Print D/T: S: 12/29/2018 (1056) NATANAEL Cheung NAME: GRECIA SALEEM [address] [place] [address] PHYS: William Robert NP [place], [place] [address] : 1965 AGE: 53 SEX: F LOC: B.ERS PHONE #: [phone] EXAM DATE: 12/29/2018 STATUS: REG ER FAX #: [phone] RAD #: D/C DT PAGE 3 Signed Report CREATINE KINASE (CK), TOTAL AND [id number] 22:22:00* Test Item Value Reference Range Comments CREATINE KINASE TOTAL (BEAKER) (test ixrn=553) 430 U/L 25-235 CREATINE KINASE-MB (BEAKER) (test uxon=803) 1.6 ng/mL 0.0-4.9 CREATINE KINASE-MB INDEX (BEAKER) (test pqmj=853) 0.4 % CK-MB Reference Range:<5 Normal5-10 Borderline>10 AbnormalCOMPREHENSIVE METABOLIC [id number] 22:20:00* Test Item Value Reference Range Comments TOTAL PROTEIN (BEAKER) (test rwse=536) 8.5 gm/dL 6.0-8.5 Specimen moderately hemolyzed ALBUMIN (BEAKER) (test kdra=6017) 3.3 g/dL 3.5-5.0 Specimen moderately hemolyzed ALKALINE PHOSPHATASE (BEAKER) (test iadl=248) 63 U/L 30-115 BILIRUBIN TOTAL (BEAKER) (test ykzr=550) 0.3 mg/dL 0.1-1.2 Specimen moderately hemolyzed SODIUM (BEAKER) (test zyka=327) 137 meq/L 135-148 POTASSIUM (BEAKER) (test wnsr=210) 4.4 meq/L 3.6-5.5 Specimen moderately hemolyzed CHLORIDE (BEAKER) (test jazo=651) 109 meq/L 98-106 CO2 (BEAKER) (test ivcg=858) 19 meq/L 20-29 BLOOD UREA NITROGEN (BEAKER) (test nteg=885) 13 mg/dL 10-26 CREATININE (BEAKER) (test pygh=422) 0.80 mg/dL 0.50-1.20 Specimen moderately hemolyzed GLUCOSE RANDOM (BEAKER) (test hoyj=738) 91 mg/dL 70-110 CALCIUM (BEAKER) (test mxdw=175) 8.6 mg/dL 8.5-10.5 AST (SGOT) (BEAKER) (test gcph=601) 25 U/L 5-40 Specimen moderately hemolyzed ALT (SGPT) (BEAKER) (test drwh=702) 17 U/L 5-50 Specimen moderately hemolyzed EGFR (BEAKER) (test bloj=8372) 92 mL/min/1.73 sq m ESTIMATED GFR IS NOT ACCURATE CREATININE CLEARANCE IN PREDICTING GLOMERULAR FILTRATION RATE. ESTIMATED GFR IS NOT APPLICABLE FOR DIALYSIS PATIENTS. TROPONIN [id number] 22:20:00* Test Item Value Reference Range Comments TROPONIN I (BEAKER) (test ocfr=735) < ng/mL 0.00-0.15 Troponin I (TnI) levels must be interpreted in the context of the presenting sym ptoms and the clinical findings. Elevated TnI levels indicate myocardial damage, but are not specific for ischemic heart disease. Elevated TnI levels are seen in patients with other cardiac conditions (including myocarditis and congestive h eart failure), and slight TnI elevations occur in patients with other conditions , including sepsis, renal failure, acidosis, acute neurological disease, and per sistent tachyarrhythmia.URINALYSIS W/ REFLEX URINE [id number] 22:10:00* Test Item Value Reference Range Comments COLOR (BEAKER) (test gzyo=812) Yellow CLARITY (BEAKER) (test ylya=494) Clear SPECIFIC GRAVITY UA (BEAKER) (test lmfd=501) 1.015 1.001-1.035 PH UA (BEAKER) (test iyul=745) 7.5 5.0-8.0 PROTEIN UA (BEAKER) (test ovsw=070) Negative Negative GLUCOSE UA (BEAKER) (test ebvu=960) Negative Negative KETONES UA (BEAKER) (test abud=620) Negative Negative BILIRUBIN UA (BEAKER) (test yrqg=869) Negative Negative BLOOD UA (BEAKER) (test jwdg=315) Negative Negative NITRITE UA (BEAKER) (test ectv=273) Negative Negative LEUKOCYTE ESTERASE UA (BEAKER) (test ozsk=223) Negative Negative UROBILINOGEN UA (BEAKER) (test cenj=483) 0.2 mg/dL 0.2-1.0 BACTERIA (BEAKER) (test bwsf=421) Occasional RBC UA-MANUAL (BEAKER) (test gjmv=7429) <5 /HPF WBC UA-MANUAL (BEAKER) (test qnvt=9872) <5 /HPF SQUAMOUS EPITHELIAL MANUAL (BEAKER) (test etjn=9112) 10-20 /HPF SOURCE(BEAKER) (test dzvw=8456) CBC W/PLT COUNT & AUTO [id number] 20:53:00* Test Item Value Reference Range Comments WHITE BLOOD CELL COUNT (BEAKER) (test nsus=058) 5.8 K/ L 4.0-10.0 RED BLOOD CELL COUNT (BEAKER) (test hguv=943) 4.00 M/ L 4.00-5.00 HEMOGLOBIN (BEAKER) (test wqnh=723) 12.2 GM/DL 12.0-15.0 HEMATOCRIT (BEAKER) (test bmrb=968) 37.2 % 36.0-45.0 MEAN CORPUSCULAR VOLUME (BEAKER) (test lgbu=887) 93.2 fL 82.0-99.0 MEAN CORPUSCULAR HEMOGLOBIN (BEAKER) (test ngef=544) 30.6 pg 27.0-33.0 MEAN CORPUSCULAR HEMOGLOBIN CONC (BEAKER) (test qvwu=140) 32.8 GM/DL 32.0-36.0 RED CELL DISTRIBUTION WIDTH (BEAKER) (test skth=004) 16.4 % 10.3-14.2 PLATELET COUNT (BEAKER) (test zuyt=965) 239 K/CU MM 150-430 MEAN PLATELET VOLUME (BEAKER) (test ayth=864) 7.9 fL 6.5-10.5 NUCLEATED RED BLOOD CELLS (BEAKER) (test rswz=456) 0 /100 WBC 0-0 NEUTROPHILS RELATIVE PERCENT (BEAKER) (test duhj=223) 68 % LYMPHOCYTES RELATIVE PERCENT (BEAKER) (test vosx=395) 22 % MONOCYTES RELATIVE PERCENT (BEAKER) (test odmm=314) 7 % EOSINOPHILS RELATIVE PERCENT (BEAKER) (test ohdp=894) 3 % BASOPHILS RELATIVE PERCENT (BEAKER) (test wvyz=213) 0 % NEUTROPHILS ABSOLUTE COUNT (BEAKER) (test qvfw=404) 3.90 K/ L 1.80-8.00 LYMPHOCYTES ABSOLUTE COUNT (BEAKER) (test ygse=088) 1.30 K/ L 1.48-4.50 MONOCYTES ABSOLUTE COUNT (BEAKER) (test wbga=549) 0.40 K/ L 0.00-1.30 EOSINOPHILS ABSOLUTE COUNT (BEAKER) (test aoiq=578) 0.20 K/ L 0.00-0.50 BASOPHILS ABSOLUTE COUNT (BEAKER) (test cjci=961) 0.00 K/ L 0.00-0.20 CT, BRAIN, WITHOUT [id number] 20:44:00Reason for exam:->HEADACHEReason for exam:->BACK PAINReason for exam:->HIP PAINIs the patient ?->NoWhat is the patient's sedation requirement?->No SedationFINAL REPORT CT head without contrast INDICATION: Headache, back pain, hip pain TECHNIQUE: Axial noncontrast CT images through the head were obtained. This exam was performed according to our departmental dose optimization program which includes automated exposure control, adjustment of the mA and/or kV according to patient size and/or use of iterative reconstruction technique. COMPARISON: CT head 04/04/2013, MRI brain 05/17/2008 FINDINGS:There is no acute intracranial hemorrhage or mass effect. There are no specific CT findings of acute infarct. Please note that CT is insensitive for early or small infarcts. Left sided craniotomy changes are again noted. A left cerebellar lesion seen on prior MRI is not visible on CT. There is no hydrocephalus or midline shift. There is a small right sphenoid sinus retention cyst or polyp with well aerated mastoid air cells. The globes remain proptotic. A right sided scalp dermal lesion is substantially smaller. IMPRESSION: No acute intracranial hemorrhage or mass eff ect. Left cerebellar lesion seen on prior MRI is not visible on CT. Additional c hronic and postsurgical findings as discussed. If there is persistent concern fo r acute abnormality, MRI is advised. Signed: Babak Moyaeport Verif ied Date/Time: 02/03/2017 20:44:39 Reading Location: [facility] Re ading Room 0 8:44 PM RAD, CHEST, 1 VIEW, NON [id number] 20:26:00Reason for exam:-> HEADACHEReason for exam:->BACK PAINReason for exam:->HIP PAINShould this be performed at the bedside?->YesFINAL REPORT INDICATION: HEADACHEBACK PAINHIP PAIN COMPARISON: None. TECHNIQUE: Chest radiograph, single view, portable technique. FINDINGS / IMPRESSION: There is no evidence of pneumonia or pulmonary edema. Cardiac and mediastinal contours are unremarkable. No pleural effusion or pneumothorax is demonstrated. Osseous structures are unremarkable. In summary, no evidence of acute pulmonary or cardiac abnormality. Signed: Erwin Mohr Verified Date/Time: 02/03/2017 20:26:04 Reading Location: [facility] B1 [id number] Consult Reading Room
[2019-02-26] MEDS ORDERED: KETOROLAC TROMETHAMINE 60 MG/2 ML VIAL IM ONE (10:45)
--- NOTE | 2019-02-26 12:10 | Diagnostic Imaging Report ---
EXAMINATION: CHEST 2 VIEWS INDICATION: Trauma COMPARISON: None FINDINGS: LINES/TUBES:None LUNGS:The lungs are moderately inflated. No focal consolidation or pulmonary edema. Mild subsegmental atelectasis at the left lung base. PLEURA:No pleural effusion or pneumothorax. MEDIASTINUM:The cardiomediastinal silhouette appears normal in size and shape. BONES/SOFT TISSUES:No displaced fractures. ABDOMEN:No free air under the diaphragm. IMPRESSION: No evidence of acute traumatic injury to the thorax. No focal pneumonia or pulmonary edema. Mild subsegmental atelectasis at the left lung base. Signed by: Tasia Diaz MD on 02/26/2019 12:06 PM
--- NOTE | 2019-02-26 12:34 | Diagnostic Imaging Report ---
EXAMINATION: SP LUMBAR, COMPLETE MIN 4VW INDICATION: Trauma COMPARISON: None FINDINGS: AP, lateral, and oblique radiographs of the lumbar spine were obtained. No acute fracture. Vertebral body heights are maintained. Alignment is anatomic. Mild multilevel degenerative changes most notably at L5-S1 where there is disc space narrowing and osteophyte formation. Nonobstructive bowel gas pattern. IMPRESSION: No acute osseous injury. Anatomic alignment. Mild degenerative changes. Signed by: Tasia Diaz MD on 02/26/2019 12:31 PM
[2019-02-26 14:04] VITALS: BP 133/84
== END 2019-02-26 13:35 | disposition home or self-care (01) ==
LOC: ER 09:48
DX: M54.5 Low back pain (principal); M54.6 Pain in thoracic spine; Z91.81 History of falling; G89.29 Other chronic pain
CPT/HCPCS: 71046; 72110; 99283; J1885

== ENCOUNTER 2019-04-02 16:08 | Emergency (ER) | payer OTHER ==
[~2019-04-02] VITALS: Ht 182.9 cm; Wt 117.5 kg
[2019-04-02] MEDS ORDERED: SODIUM CHLORIDE 0.9% 1000ML 1,000 ML IV STA (18:13)
--- NOTE | 2019-04-02 18:25 | NUR ---
STILL TRYING TO OBTAIN IV ACCESS. Elian BLEVINS INFORMED
[2019-04-02 18:35] LABS: BASOPHILS # (AUTO) 0.1 (0.0-0.1); EOSINOPHILS # (AUTO) 0.2 (0.0-0.4); EOSINOPHILS % 2.2 % (0.0-6.0); HEMATOCRIT 41.6 % (34.2-44.1); HEMOGLOBIN 13.4 g/dL (12.0-16.0); LYMPHOCYTES # (AUTO) 1.5 (1.0-3.2); LYMPHOCYTES % 22.3 % (18.0-39.1); MEAN CORPUSCULAR HEMOGLOBIN 31.2 pg (28-32); MEAN CORPUSCULAR HGB CONC 32.2 g/dL (31-35); MEAN CORPUSCULAR VOLUME 96.7 fL (81-99); MONOCYTES # (AUTO) 0.4 (0.2-0.8); MONOCYTES % 5.7 % (4.4-11.3); NEUTROPHILS # (AUTO) 4.6 (2.1-6.9); NEUTROPHILS % 68.7 % (38.7-80.0); PLATELET COUNT 245 x10e3/uL (140-360); RED CELL DISTRIBUTION WIDTH 14.5 % (11.7-14.4)
[2019-04-02 18:53] LABS: ALANINE AMINOTRANSFERASE 17 IU/L (0-55); ALBUMIN 3.6 g/dL (3.5-5.0); ALBUMIN/GLOBULIN RATIO 0.8 (0.8-2.0); ALKALINE PHOSPHATASE 73 IU/L (40-150); ANION GAP 10.6 mmol/L (8-16); BLOOD UREA NITROGEN 14 mg/dL (7-26); BUN/CREATININE RATIO 17 (6-25); CALCIUM 8.8 mg/dL (8.4-10.2); CARBON DIOXIDE 24 mmol/L (22-29); CHLORIDE 106 mmol/L (98-107); CREATININE, SERUM 0.82 mg/dL (0.57-1.11); EST GLOMERULAR FILTRATION RATE > 60 ML/MIN (60-); GLUCOSE 81 mg/dL (74-118); POTASSIUM 3.6 mmol/L (3.5-5.1); SODIUM 137 mmol/L (136-145)
--- NOTE | 2019-04-02 19:11 | NUR ---
IV ACCESS OBTAINED AND LABS SENT OFF
[2019-04-02 19:53] LABS: BILIRUBIN,URINE NEGATIVE (NEGATIVE); CLARITY,URINE CLEAR (CLEAR); COLOR,URINE YELLOW (YELLOW); KETONES,URINE NEGATIVE (NEGATIVE); LEUKOCYTE ESTERASE ,URINE NEGATIVE (NEGATIVE); NITRITE,URINE NEGATIVE (NEGATIVE); PROTEIN,URINE DIPSTICK NEGATIVE (NEGATIVE); URINE UROBILINOGEN 0.2 mg/dL (0.2 - 1)
[2019-04-02 20:04] LABS: BACTERIA,URINE FEW /HPF; EPITHELIAL CELLS,URINE FEW /LPF
[2019-04-02] MEDS ORDERED: TRAMADOL HCL 50 MG TAB PO ONE (20:45)
[2019-04-02] MEDS ORDERED: HYDROCODONE/APAP 10MG-325MG TAB PO ONE (21:15)
--- NOTE | 2019-04-02 21:43 | NUR ---
MARQUIS CALLED AT 2422 FOR THIS PT. TO BE TAKEN HOME
== END 2019-04-02 21:30 | disposition home or self-care (01) ==
LOC: ER 16:08
DX: N93.8 Other specified abnormal uterine and vaginal bleeding (principal); R10.32 Left lower quadrant pain; G40.909 Epilepsy, unspecified, not intractable, without status epilepticus; M54.9 Dorsalgia, unspecified; G89.29 Other chronic pain
CPT/HCPCS: 36415; 80053; 81001; 85025; 87086; 99284; J7030

== ENCOUNTER 2019-04-22 10:44 | Emergency (ER) | payer OTHER ==
[~2019-04-22] VITALS: Ht 182.9 cm; Wt 117.5 kg
[2019-04-22] MEDS ORDERED: SODIUM CHLORIDE 0.9% 1000ML 1,000 ML IV STA (11:42)
[2019-04-22] MEDS ORDERED: KETOROLAC TROMETHAMINE 30 MG/ML VIAL IV STA (11:42)
[2019-04-22] MEDS ORDERED: METOCLOPRAMIDE HCL 10 MG/2ML VIAL IV ONE (11:45)
[2019-04-22] MEDS ORDERED: DIPHENHYDRAMINE HCL INJ 50 MG/ML VIAL IV ONE (12:15)
--- NOTE | 2019-04-22 12:35 | Diagnostic Imaging Report ---
Examination: CT BRAIN WO CONTRAST History:Headaches. Fall. Head injury Comparison studies:None Technique: Axial images were obtained from the skull base to the vertex. Coronal and sagittal images reconstructed from the axial data. Dose modulation, iterative reconstruction, and/or weight based adjustment of the mA/kV was utilized to reduce the radiation dose to as low as reasonably achievable. Intravenous contrast: None Findings: Scalp: No abnormalities. Bones: Prior left parietal craniotomy. No fractures, blastic or lytic lesions. Brain sulci: Appropriate for age. Ventricles: Normal in size and configuration. No hydrocephalus. Extra-axial space: No abnormalities. Parenchyma: No masses, hemorrhage, or acute or chronic cortical based vascular insults.. Sellar/suprasellar region: No abnormalities. Craniocervical junction: Patent foramen magnum. No Chiari one malformation. Incidental findings: None. Impression: No acute intracranial abnormalities. Signed by: Dr. Meseret Sung M.D. on 04/22/2019 12:31 PM
== END 2019-04-22 14:18 | disposition home or self-care (01) ==
LOC: ER 10:45
DX: G43.019 Migraine without aura, intractable, without status migrainosus (principal)
CPT/HCPCS: 70450; 99284; J1200; J1885; J2765; J7030

== ENCOUNTER 2019-04-27 20:41 | Emergency (ER) | payer OTHER ==
[~2019-04-27] VITALS: Ht 182.9 cm; Wt 117.5 kg
[2019-04-27] MEDS ORDERED: ACETAMINOPHEN 325 MG TAB ONE (21:10)
[2019-04-27] MEDS ORDERED: ACETAMINOPHEN 325 MG TAB PO ONE (21:15)
[2019-04-27 21:26] LABS: STREPTOCOCCUS GRP A ANTIGEN NEGATIVE (NEGATIVE)
[2019-04-27 21:35] LABS: INFLUENZAE A&B ANTIGEN (RAPID) NEGATIVE (NEGATIVE)
--- NOTE | 2019-04-27 22:23 | Diagnostic Imaging Report ---
EXAMINATION: CHEST 2 VIEWS INDICATION: fever, cough COMPARISON: Chest x-ray 02/26/2019 FINDINGS: TUBES and LINES: None. LUNGS: Lungs are well inflated. Lungs are clear. There is no evidence of pneumonia or pulmonary edema. PLEURA: No pleural effusion or pneumothorax. HEART AND MEDIASTINUM: The cardiomediastinal silhouette is unremarkable. BONES AND SOFT TISSUES: No acute osseous lesion. Soft tissues are unremarkable. UPPER ABDOMEN: No free air under the diaphragm. IMPRESSION: No acute thoracic radiographic abnormality. Signed by: Des Gardner DO on 04/27/2019 10:20 PM
[2019-04-27 22:32] VITALS: BP 124/79
== END 2019-04-27 22:32 | disposition home or self-care (01) ==
LOC: ER 20:41
DX: J20.9 Acute bronchitis, unspecified (principal); J06.9 Acute upper respiratory infection, unspecified; G40.909 Epilepsy, unspecified, not intractable, without status epilepticus; M54.9 Dorsalgia, unspecified; G89.29 Other chronic pain
CPT/HCPCS: 71046; 83518; 87070; 87400; 99283

== ENCOUNTER 2019-05-03 19:11 | Emergency (ER) | payer OTHER ==
[~2019-05-03] VITALS: Ht 182.9 cm; Wt 117.5 kg
--- NOTE | 2019-05-03 21:47 | Diagnostic Imaging Report ---
EXAMINATION: CHEST 2 VIEWS INDICATION: ^cough ^[id number] ^2039 COMPARISON: 04/27/2019 FINDINGS: PA and lateral views TUBES and LINES: None. LUNGS: Lungs are well inflated. There is no evidence of pneumonia or pulmonary edema. PLEURA: No pleural effusion or pneumothorax. HEART AND MEDIASTINUM: The cardiomediastinal silhouette is unremarkable. BONES AND SOFT TISSUES: No acute osseous lesion. Soft tissues are unremarkable. UPPER ABDOMEN: No free air under the diaphragm. IMPRESSION: No acute thoracic abnormality. Signed by: Dr. Rodney Ramirez MD on 05/03/2019 9:44 PM
[2019-05-03] MEDS ORDERED: ACETAMINOPHEN 325 MG TAB PO ONE (22:00)
== END 2019-05-03 22:10 | disposition home or self-care (01) ==
LOC: ER 19:11
DX: R50.9 Fever, unspecified (principal); R05 Cough; J20.9 Acute bronchitis, unspecified
CPT/HCPCS: 71046; 99283

== ENCOUNTER 2019-05-22 00:39 | Inpatient (IN) | payer OTHER ==
[2019-05-22] VITALS (11 sets, daily range): BP systolic 123–171; BP diastolic 69–97
[~2019-05-22] VITALS: Ht 182.9 cm; Wt 115.7 kg
[2019-05-22 01:58] LABS: BASOPHILS # (AUTO) 0.1 (0.0-0.1); EOSINOPHILS # (AUTO) 0.2 (0.0-0.4); EOSINOPHILS % 2.5 % (0.0-6.0); HEMATOCRIT 42.9 % (34.2-44.1); HEMOGLOBIN 13.7 g/dL (12.0-16.0); LYMPHOCYTES # (AUTO) 1.7 (1.0-3.2); LYMPHOCYTES % 29.2 % (18.0-39.1); MEAN CORPUSCULAR HEMOGLOBIN 30.9 pg (28-32); MEAN CORPUSCULAR HGB CONC 31.9 g/dL (31-35); MEAN CORPUSCULAR VOLUME 96.6 fL (81-99); MONOCYTES # (AUTO) 0.5 (0.2-0.8); MONOCYTES % 8.1 % (4.4-11.3); NEUTROPHILS # (AUTO) 3.5 (2.1-6.9); NEUTROPHILS % 58.9 % (38.7-80.0); PLATELET COUNT 242 x10e3/uL (140-360); RED BLOOD COUNT 4.44 x10e6/uL (3.6-5.1)
[2019-05-22 02:18] LABS: ALANINE AMINOTRANSFERASE 22 IU/L (0-55); ALBUMIN 3.4 g/dL (3.5-5.0); ALBUMIN/GLOBULIN RATIO 0.7 (0.8-2.0); ALKALINE PHOSPHATASE 68 IU/L (40-150); ANION GAP 14.5 mmol/L (8-16); BLOOD UREA NITROGEN 11 mg/dL (7-26); BUN/CREATININE RATIO 12 (6-25); CALCIUM 8.9 mg/dL (8.4-10.2); CARBON DIOXIDE 27 mmol/L (22-29); CHLORIDE 98 mmol/L (98-107); CREATINE KINASE 142 IU/L (29-168); CREATININE, SERUM 0.92 mg/dL (0.57-1.11); EST GLOMERULAR FILTRATION RATE > 60 ML/MIN (60-); GLUCOSE 95 mg/dL (74-118); POTASSIUM 4.5 mmol/L (3.5-5.1); SODIUM 135 mmol/L (136-145)
--- NOTE | 2019-05-22 02:21 | Diagnostic Imaging Report ---
EXAMINATION: CHEST 2 VIEWS INDICATION: Bodyaches, cough, chronic back pain COMPARISON: Chest x-ray 05/13/2019 FINDINGS: TUBES and LINES: None. LUNGS: Lungs are well inflated. Lungs are clear. There is no evidence of pneumonia or pulmonary edema. PLEURA: No pleural effusion or pneumothorax. HEART AND MEDIASTINUM: The cardiomediastinal silhouette is unremarkable. BONES AND SOFT TISSUES: No acute osseous lesion. Soft tissues are unremarkable. UPPER ABDOMEN: No free air under the diaphragm. IMPRESSION: No acute thoracic radiographic abnormality. Signed by: Des Gardner DO on 05/22/2019 2:18 AM
[2019-05-22 02:25] LABS: INFLUENZAE A&B ANTIGEN (RAPID) NEGATIVE (NEGATIVE); STREPTOCOCCUS GRP A ANTIGEN NEGATIVE (NEGATIVE)
[2019-05-22] MEDS ORDERED: ASPIRIN 325 MG TAB PO ONE (02:45)
[2019-05-22] MEDS ORDERED: ONDANSETRON HCL INJ 2MG/ML 2ML 2 MG/ML VIAL IV PRN (02:45)
[2019-05-22] MEDS ORDERED: ENOXAPARIN SODIUM INJ 100 MG/ML SYR SC SCH (02:45)
[2019-05-22] MEDS ORDERED: MORPHINE SULFATE INJ 4 MG/ML INJ 1ML IV PRN (03:00)
[2019-05-22] MEDS ORDERED: HYDRALAZINE HCL 20 MG/ML VIAL IV PRN (03:00)
--- NOTE | 2019-05-22 04:00 | NUR ---
report called to this nurse from ER, SBAR report given by Calista SCHAFER RN, patient pending arrival to the floor, admitted for NonSTEMI, body aches, negative flu, Troponin 0.498, next cardiac enzymes due @ 1030am, will continue to monitor, telemetry in place
--- NOTE | 2019-05-22 05:19 | NUR ---
patient arrive to the room via gurney, able to transfer with assistance w/o difficulty, AOX3, no distress noted, c/o chronic back pain, rates pain level 8/10, states "It always hurts, it hurts so much", asking for financial and housing assistance, states she lives in [facility] and apartment is pending, patient states "they put alarm on me, because they say they dont want me to fall, educated patient newspaper correspondent light use, but bed alarm activated for safety, walker at bedside, pt requested bedside commode stating "when I have to go I really have to go" "they usually give me toilet here when I am here", all questions ask and answered during initial assessment, oriented to staff, room, and no procedure in the am, call light within reach, arm band for allergy and fall placed on right wrist
[2019-05-22] MEDS ORDERED: PROAIR DIGIHAL90 MCG INH (06:41)
[2019-05-22] MEDS ORDERED: BUTALB-ACETAMI1 EACH (06:42)
[2019-05-22] MEDS ORDERED: TOPIRAMATE25 MG PO (06:45)
[2019-05-22] MEDS ORDERED: LEVETIRACETAM500 MG PO (06:46)
[2019-05-22] MEDS ORDERED: MELOXICAM7.5 MG PO (06:48)
[2019-05-22] MEDS ORDERED: ALPRAZOLAM0.5 MG PO (06:51)
[2019-05-22] MEDS ORDERED: HYDROXYZINE25 MG/ML PO (06:52)
[2019-05-22] MEDS ORDERED: HYDROXYZINE HCL25 MG PO (06:52)
--- NOTE | 2019-05-22 07:00 | NUR ---
BEDSIDE SHIFT REPORT RECEIVED FROM THE ACADEMIC SUPPORT ASSISTANT RN. EDUCATED PT ABOUT FALL PRECAUTIONS. CALL LIGHT WITH IN EASY REACH. INSTRUCTED PT TO USE CALL LIGHT FOR ALL THE NEEDS. PT VERBALIZED UNDERSTANDING. BED IS LOW AND LOCKED. SIDE RAILS X2. PT DENIES NEEDS AT THIS TIME.
[2019-05-22] MEDS ORDERED: QUETIAPINE FUM100 MG PO (07:15)
[2019-05-22] MEDS ORDERED: MAGNESIUM GLUC (07:15)
[2019-05-22] MEDS ORDERED: TRAZODONE HCL50 MG PO (07:17)
[2019-05-22] MEDS ORDERED: CITALOPRAM HBR40 MG (07:18)
[2019-05-22] MEDS ORDERED: Morphine IR PO (07:25)
[2019-05-22] MEDS ORDERED: LYRICA75 MG PO (07:27)
--- NOTE | 2019-05-22 07:27 | NUR ---
home medication added to med rec, SBAR report given verbally to Luís FERGUSON, patient AOX3, no distress, VSS remain on telemetry
--- NOTE | 2019-05-22 08:30 | NUR ---
HOME MEDS RECONFIRMED WITH THE PT INCLUDING DOSAGE.
[2019-05-22] MEDS ORDERED: ALBUTEROL/IPRATROPIUM 3 ML NEB NEB PRN (10:15)
[2019-05-22] MEDS ORDERED: ACETAMIN/BUTALBITAL/CAFFEINE TAB PO PRN (10:15)
[2019-05-22] MEDS ORDERED: BENZONATATE 100 MG CAP PO PRN (10:15)
[2019-05-22] MEDS ORDERED: GUAIFENESIN/CODEINE 10 ML CUP PO PRN (10:15)
--- NOTE | 2019-05-22 10:40 | NUR ---
PT OFF UNIT FOR PROCEDURE IN SAFE CONDITION.
[2019-05-22] MEDS: MORPHINE SULFATE INJ 4 MG/ML INJ 1ML IV PRN (10:41)
[2019-05-22] MEDS: AZITHROMYCIN 500MG/NS 250 ML 250 ML IV SCH (11:00)
[2019-05-22] MEDS ORDERED: CEFTRIAXONE SOD 1 GM/NS 50 ML 50 ML IV SCH (11:00)
--- NOTE | 2019-05-22 11:00 | NUR ---
PT BACK TO UNIT AFTER PROCEDURE. DENIES NEEDS AT THIS TIME.
[2019-05-22 11:16] LABS: CREATINE KINASE MB 1.5 ng/mL (0-5.0)
[2019-05-22] MEDS ORDERED: SODIUM CHLORIDE 0.9% 250ML 250 ML ONE (11:20)
[2019-05-22] MEDS: ALBUTEROL/IPRATROPIUM 3 ML NEB NEB SCH (13:00)
--- NOTE | 2019-05-22 13:08 | History and Physical ---
CHIEF COMPLAINT: Increasing shortness of breath, chest pain with progressive cough, weak illness for the past 1 to 2 weeks. HISTORY OF PRESENT ILLNESS: The patient is a 53-year-old female has been going to emergency room 3 to 4 times per the patient, but this time she is admitted for increasing cardiac enzyme. Her lab work shown that her TNI was 0.499. There is EKG, however, normal sinus rhythm with low voltage. Dr. Prince consulted. The patient stated that she has been having increasing cough, nonproductive but with wheezing and also subsequent with chest pain. She did have some sick exposure. Her influenza A and B were negative. The patient only had a chest x-ray, but she is significantly obese with BMI greater than 35. The patient only had one view x-ray in the emergency room did not reveal any significant abnormality. The patient remained with wheezing and she is placed on oxygen support. No nebulizer treatment in the emergency room as of yet and is ordered now. PAST MEDICAL HISTORY: The patient has a concussion x2 back in September 2018. She also has a seizure approximately 3 years ago started after she had multiple cranial surgery due to a trauma, subdural hematoma. The patient had a Cardiolite stress test due to abnormal cardiac enzymes per the patient, but poor historian. This was back in October 2018. She does have anxiety disorder, chronic lower back pain on pain medication. She has depression, hypertension, chronic headaches, seizure, sleeping disorder, possible obstructive sleep apnea, but not on any treatment. SOCIAL HISTORY: The patient does not smoke or use alcohol. No regular drugs. ALLERGIES: TO PENICILLIN, SULFA, AND IODINE. CURRENT MEDICATIONS: ProAir inhaler, Xanax, Bupap, Celexa, hydroxyzine, Keppra, meloxicam, Lyrica, Seroquel, Topamax, and trazodone. PHYSICAL EXAMINATION: VITAL SIGNS: Temperature is 98, blood pressure 137/77, pulse rate 88, and respirations 22. GENERAL: The patient is little pale, but not in any distress. She is on nasal cannula. HEENT: Normocephalic and atraumatic. She is anicteric. NECK: Supple grossly. PULMONARY: Bilateral expiratory wheezing. There are some coarses at the bases. CARDIOVASCULAR: S1 and S2. Regular rate and rhythm. ABDOMEN: Morbidly obese. EXTREMITIES: No cyanosis or edema. NEUROLOGIC: No focal deficit. Moving all extremities. LABORATORY DATA: Sodium is 135, potassium 4.5, chloride 98, bicarb 27, BUN 11, creatinine 0.9, and glucose is 95. Troponin 0.499 first set. BNP is 34. Creatine kinase is 142 and CK-MB is 1.0. WBC is 5.9, hemoglobin 14, hematocrit 43, and platelet is 242. Serology influenza A and B negative. Strep screen negative. Chest x-ray one view limited, but no acute thoracic radiographic abnormality. CT of the chest still pending. IMPRESSION: 1. Upper respiratory symptoms including wheezing, coarses, cough. This could be secondary to possibilities of acute bronchitis, upper respiratory infection of viral infection and also possible pneumonia. We will see the CT scan of the chest at this time order. 2. Slight bump of cardiac enzyme 0.4, troponin I. The patient did have some abnormality back in October 2018 and she did have a stress test at the time and subsequently discharged assuming per the patient that it was normal. 3. Moderate to morbid obesity. 4. Multiple chronic baseline problems including seizure, chronic lower back pain, depression, and anxiety disorder. PLAN: CT of the chest without contrast. Nebulizer treatment. Empiric antibiotic treatment. Check the patient's lab work. Consultation with Dr. Gerry Belcher. The patient is already consulted with Dr. Prince. A 2D echocardiogram. The patient is on Lovenox for now. We will resume some of the patient's home medication. We will follow on the patient orders. MD LAURA Montaño/PACO /[id number]
[2019-05-22] MEDS: ALPRAZOLAM 0.5 MG TAB PO SCH ×2 (15:02→20:35)
[2019-05-22] MEDS: ENOXAPARIN SODIUM INJ 100 MG/ML SYR SC SCH (15:03)
[2019-05-22] MEDS: CEFTRIAXONE SOD 1 GM/NS 50 ML 50 ML IV SCH (16:40)
[2019-05-22] MEDS: LEVETIRACETAM 500 MG TAB PO SCH (16:40)
[2019-05-22] MEDS: PREGABALIN 50 MG CAP PO SCH (16:40)
[2019-05-22] MEDS ORDERED: TOPIRAMATE 25 MG TAB PO SCH (17:00)
--- NOTE | 2019-05-22 19:00 | NUR ---
BEDSIDE SHIFT REPORT GIVEN TO THE LICENSE DISTRIBUTOR RN. PT DENIED FURTHER NEEDS.
--- NOTE | 2019-05-22 19:30 | NUR ---
SBAR RECEIVED FROM DAY SHIFT RN DREW Millan, PATIENT AOX3, ABLE TO MAKE NEEDS KNOWN VERBALLY, REPORT CHRONIC PAIN LEVEL 4/10 CURRENTLY, EDUCATED ON FREQUENCY OF PAIN MEDICATION DOSES, TIME OF NEXT DOSE, PATIENT ORIENTED TO ONCOMING STAFF, CALL LIGHT PLACED WITHIN REACH, WILL RESUME CARE OF PATIENT, PENDING RESULTS OF CT CHEST
[2019-05-22 19:34] LABS: CREATINE KINASE MB 1.7 ng/mL (0-5.0)
--- NOTE | 2019-05-22 19:52 | Diagnostic Imaging Report ---
EXAM: CT Chest WITHOUT contrast INDICATION: Cough, short of breath COMPARISON: Chest x-ray 05/22/2019 TECHNIQUE: Chest was scanned utilizing a multidetector helical scanner from the lung apex through the level of the adrenal glands without administration of IV contrast. Absence of intravenous contrast decreases sensitivity for detection of lymphadenopathy and vascular pathology. Coronal and sagittal reformations were obtained. Routine protocol was performed. IV CONTRAST: None COMPLICATIONS: None RADIATION DOSE: Total DLP: 537 mGy*cm Estimated effective dose: (DLP x 0.014 x size factor) mSv CTDIvol has been reviewed. It is below the limits set by the Radiation Protocol Committee (RPC). Dose modulation, iterative reconstruction, and/or weight based adjustment of the mA/kV was utilized to reduce the radiation dose to as low as reasonably achievable. FINDINGS: LINES/ TUBES: None. LUNGS AND AIRWAYS: A 1 cm right lower lobe subpleural solid nodule with subtle central calcification (series 400 image 33). Airways are normal. A left minor fissure is present, benign anatomic variant. A 1.2 cm left hilar pneumatocele. PLEURA: Trace dependent right pleural effusion. HEART AND MEDIASTINUM: The thyroid gland is normal. No mediastinal, hilar or axillary lymphadenopathy. The heart is normal in size. Trace pericardial fluid. The main pulmonary artery is mildly dilated, 3.1 cm in diameter. The ascending thoracic aorta is 2.9 cm in diameter, within normal limits. UPPER ABDOMEN: Unremarkable. BONES: The visualized bony thorax is within normal limits. SOFT TISSUES: Unremarkable. IMPRESSION: 1. Trace dependent right pleural effusion. Mild pulmonary artery dilation can be seen with pulmonary hypertension. 2. A 1 cm right lower lobe subpleural solid nodule with subtle central calcification is likely a benign granuloma. Recommend follow-up chest CT in 6 months. Signed by: Des Gardner DO on 05/22/2019 7:49 PM
--- NOTE | 2019-05-22 20:00 | NUR ---
report received from NOC shift RN, patient AOX3, no distress noted, call light within reach
--- NOTE | 2019-05-22 20:18 | NUR ---
MD Prince consulted on patient, orders given, orders carried out, ordre orders verifed with readback
[2019-05-22] MEDS: CITALOPRAM HYDROBROMIDE 20 MG TAB PO SCH (20:34)
[2019-05-22] MEDS: SENNOSIDES 8.6 MG TAB PO SCH (20:35)
[2019-05-22] MEDS: TOPIRAMATE 25 MG TAB PO SCH (20:35)
[2019-05-22] MEDS: HYDROCODONE/APAP 10MG-325MG TAB PO PRN (20:35)
[2019-05-22] MEDS ORDERED: TRAZODONE HCL 50 MG TAB PO SCH (21:00)
[2019-05-22] MEDS ORDERED: QUETIAPINE FUMARATE 100 MG TAB PO SCH (21:00)
--- NOTE | 2019-05-22 21:05 | Consultation ---
DATE OF CONSULTATION: 05/22/2019 Cardiology Consultation The patient is seen in the patient's room and called for Cardiology at [facility]. The patient was already seen by Dr. Dunn. At the time of examination, the patient did not have chest pain. The patient came to the hospital because of significant cough and also back pain. She never complained of chest pain and she came here chest pain. The patient has no history of myocardial infarction or angina pectoris. She has a history of possible hypertension. Her main issue is mainly back problem and also she had a back surgery done in the past. The patient also has depression. Multiple antidepressant medications, she is taking. Please see the admission reconciliation medication and she is taking strong narcotics given by [facility]. Please see the admission reconciliation medication. The patient is allergic to penicillin, sulfa, and iodine. The patient did not have any abdominal surgery. 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 According to her, she had a craniotomy. It was about 3 years ago. At this time, EKG is normal. No changes are noted. However, the troponin is borderline high and at this time, I agree with medication ordered by Dr. Dunn, including the Lovenox and hydralazine for blood pressure and added metoprolol tartrate to take b.i.d. I am not going to give any anticholesterol medication, because she is already complaining the pain, maybe at a later time before she goes, we will start the anticholesterol medicine. In the meantime, I will go to one more troponin in the morning along with EKG. I do not think the patient has MD with borderline increased troponin, it may be just troponin leak. Anyhow, at this time, we will treat as MD probably depending upon the further results. We may know whether she has an MD or not. At this time, only tests we go and do are EKG, troponins, and echocardiogram. IMPRESSION: 1. Chest pain, troponin leak, possible non-Q wave myocardial infarction. 2. Obesity. 3. 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 4. Depression. 5. Anxiety state. 6. Significant back pain and she is on multiple narcotic drugs and antidepressant drugs. MD JIMMY Pleitez/PACO /[id number]
[2019-05-22] MEDS: METOPROLOL TARTRATE 25 MG TAB PO SCH ×2 (21:56→22:17)
[2019-05-22] MEDS ORDERED: METOPROLOL TARTRATE 25 MG TAB PO ONE (22:15)
[2019-05-23] VITALS (11 sets, daily range): BP systolic 95–121; BP diastolic 51–77
[2019-05-23] MEDS: HYDROCODONE/APAP 10MG-325MG TAB PO PRN ×2 (01:04→14:51)
[2019-05-23] MEDS: ENOXAPARIN SODIUM INJ 100 MG/ML SYR SC SCH ×2 (03:50→15:50)
[2019-05-23 05:02] LABS: CREATINE KINASE MB 1.4 ng/mL (0-5.0)
[2019-05-23] MEDS: ALBUTEROL/IPRATROPIUM 3 ML NEB NEB SCH ×3 (06:10→19:19)
--- NOTE | 2019-05-23 07:00 | NUR ---
BEDSIDE SHIFT REPORT RECEIVED FROM THE FOOD SERVICE CLERK RN. EDUCATED PT ABOUT FALL PRECAUTIONS. CALL LIGHT WITH IN EASY REACH. INSTRUCTED PT TO USE CALL LIGHT FOR ALL THE NEEDS. PT VERBALIZED UNDERSTANDING. BED IS LOW AND LOCKED. SIDE RAILS X2. PT DENIES NEEDS AT THIS TIME.
[2019-05-23 07:04] LABS: ANION GAP 14.2 mmol/L (8-16); BLOOD UREA NITROGEN 9 mg/dL (7-26); BUN/CREATININE RATIO 11 (6-25); CALCIUM 9.3 mg/dL (8.4-10.2); CARBON DIOXIDE 24 mmol/L (22-29); CHLORIDE 105 mmol/L (98-107); CREATININE, SERUM 0.79 mg/dL (0.57-1.11); EST GLOMERULAR FILTRATION RATE > 60 ML/MIN (60-); GLUCOSE 96 mg/dL (74-118); POTASSIUM 4.2 mmol/L (3.5-5.1); SODIUM 139 mmol/L (136-145)
[2019-05-23 07:37] LABS: BASOPHILS % 0.6 % (0.0-1.0); EOSINOPHILS # (AUTO) 0.2 (0.0-0.4); EOSINOPHILS % 3.5 % (0.0-6.0); HEMATOCRIT 41.2 % (34.2-44.1); HEMOGLOBIN 13.1 g/dL (12.0-16.0); LYMPHOCYTES # (AUTO) 1.9 (1.0-3.2); LYMPHOCYTES % 39.1 % (18.0-39.1); MEAN CORPUSCULAR HGB CONC 31.8 g/dL (31-35); MEAN CORPUSCULAR VOLUME 97.4 fL (81-99); MONOCYTES # (AUTO) 0.5 (0.2-0.8); MONOCYTES % 10.2 % (4.4-11.3); NEUTROPHILS # (AUTO) 2.3 (2.1-6.9); NEUTROPHILS % 46.4 % (38.7-80.0); PLATELET COUNT 178 x10e3/uL (140-360); RED BLOOD COUNT 4.23 x10e6/uL (3.6-5.1)
[2019-05-23] MEDS: ASPIRIN 81 MG ENTERIC COATED PO SCH (08:49)
[2019-05-23] MEDS: LEVETIRACETAM 500 MG TAB PO SCH ×2 (08:50→16:38)
[2019-05-23] MEDS: PREGABALIN 50 MG CAP PO SCH (08:50)
[2019-05-23] MEDS: POTASSIUM CHLORIDE 20 MEQ TAB CR PO SCH (08:50)
[2019-05-23] MEDS: ALPRAZOLAM 0.5 MG TAB PO SCH (08:51)
[2019-05-23] MEDS ORDERED: FUROSEMIDE INJ 10 MG/ML 2 ML VIAL IV SCH (09:00)
[2019-05-23] MEDS: METOPROLOL TARTRATE 25 MG TAB PO SCH ×2 (09:11→16:38)
[2019-05-23] MEDS: TOPIRAMATE 25 MG TAB PO SCH ×2 (09:11→20:37)
[2019-05-23] MEDS: AZITHROMYCIN 500MG/NS 250 ML 250 ML IV SCH (09:17)
[2019-05-23] MEDS: HYDROXYZINE HCL 25 MG TAB PO SCH (10:20)
[2019-05-23] MEDS ORDERED: ALPRAZOLAM 0.5 MG TAB PO PRN (12:00)
[2019-05-23] MEDS: PREGABALIN 75 MG CAP PO SCH (16:38)
[2019-05-23] MEDS: CEFTRIAXONE SOD 1 GM/NS 50 ML 50 ML IV SCH (16:38)
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
[2019-05-23] MEDS ORDERED: PREGABALIN 50 MG CAP PO SCH (17:00)
--- NOTE | 2019-05-23 19:00 | NUR ---
BEDSIDE SHIFT REPORT GIVEN TO THE PLASTICS SUPERVISOR RN. PT DENIED FURTHER NEEDS.
--- NOTE | 2019-05-23 19:30 | NUR ---
Resume care of patient, SBAR report received from avril RN, patient seen sitting up in middle of bed on phone talking, AOX4, able to make needs known, no c/o pain, Avril RN reports that patient SBP remains low, MD was made aware on , medication adjustment was made per MD, patient report pain level tolerable at this time, advise patient to call prior to getting out of bed, CALL DONT FALL, call light placed within her reach
[2019-05-23] MEDS: QUETIAPINE FUMARATE 100 MG TAB PO SCH (20:37)
[2019-05-23] MEDS: SENNOSIDES 8.6 MG TAB PO SCH (20:38)
[2019-05-23] MEDS: CITALOPRAM HYDROBROMIDE 20 MG TAB PO SCH (20:38)
[2019-05-23] MEDS: TRAZODONE HCL 50 MG TAB PO SCH (20:39)
[2019-05-24] VITALS (12 sets, daily range): BP systolic 80–127; BP diastolic 47–82
--- NOTE | 2019-05-24 00:18 | NUR ---
telemetry box discontinued at this time, demetrio Prince
[2019-05-24] MEDS: ALBUTEROL/IPRATROPIUM 3 ML NEB NEB SCH ×4 (01:31→18:53)
[2019-05-24] MEDS: ENOXAPARIN SODIUM INJ 100 MG/ML SYR SC SCH ×2 (02:30→15:52)
--- NOTE | 2019-05-24 04:57 | NUR ---
MD rosales notified via telephone that patient hypotensive SBP 84/54, orders pending Addendum: 05/24/19 at 0501 by ROLLY MCCOY RN MD rosales connected thru answering service, ordered notified of patient SBP 84/54, HR 89, patient is asymptomatic at this time, ordered to hold lasix 9am dose for now, if patient continues to be hypotensive call for further orders
--- NOTE | 2019-05-24 07:10 | NUR ---
PATIENT IS AWAKE, ALERT, AND IN STABLE CONDITION WITH NO S/S OF RESPIRATORY DISTRESS. PATIENT C/O BACK PAIN 08/26. WALKER AVAILABLE FOR PATIENT NEAR BEDSIDE. CALL LIGHT IS WITHIN REACH, PATIENT INSTRUCTED TO CALL FOR ASSISTANCE NEEDED.
--- NOTE | 2019-05-24 07:33 | NUR ---
Bedside shift report given to MARTY Reynolds, patient awake alert, participated in report, patient report pain level as tolerable, MARTY Reynolds toileting offered to patient at this time, assisted by MARTY Reynolds into bathroom, advised to call when finished to be given standby assist back to bed
[2019-05-24] MEDS: TOPIRAMATE 25 MG TAB PO SCH ×2 (08:08→21:15)
[2019-05-24] MEDS: HYDROXYZINE HCL 25 MG TAB PO SCH (08:09)
[2019-05-24] MEDS: PREGABALIN 75 MG CAP PO SCH ×2 (08:09→16:04)
[2019-05-24] MEDS: LEVETIRACETAM 500 MG TAB PO SCH ×2 (08:09→16:04)
[2019-05-24] MEDS: ASPIRIN 81 MG ENTERIC COATED PO SCH (08:09)
[2019-05-24] MEDS: METOPROLOL TARTRATE 25 MG TAB PO SCH ×2 (08:09→15:36)
[2019-05-24] MEDS: HYDROCODONE/APAP 10MG-325MG TAB PO PRN (08:09)
[2019-05-24] MEDS: POTASSIUM CHLORIDE 20 MEQ TAB CR PO SCH (08:09)
[2019-05-24] MEDS: MORPHINE SULFATE INJ 4 MG/ML INJ 1ML IV PRN ×2 (09:13→13:49)
[2019-05-24] MEDS: AZITHROMYCIN 500MG/NS 250 ML 250 ML IV SCH (09:17)
[2019-05-24] MEDS ORDERED: ONDANSETRON HCL 4 MG ORAL DISINTEGRATING TAB PO PRN (12:45)
[2019-05-24] MEDS: CEFTRIAXONE SOD 1 GM/NS 50 ML 50 ML IV SCH (15:52)
--- NOTE | 2019-05-24 16:19 | NUR ---
SPOKE WITH DR. RUBIO REGARDING PATIENT'S BP OF 97/84 -ORDER TO DC HIS ORDER FOR LISINOPRIL.
--- NOTE | 2019-05-24 18:42 | Progress Note ---
DATE: 05/24/2019 Cardiology Progress Note SUBJECTIVE: The patient is seen in the room. The patient is awake, alert. No shortness of breath. No chest pain. The patient is stable cardiac-morales. At this time, patient troponin has leak. The patient did not have a non-Q myocardial infarction at this time. From my point of view, the patient is to be discharged with present medications. I am going to add lisinopril 5 mg once a day and if she wishes to follow she can follow with my office. DIAGNOSES: 1. Atypical chest pain. 2. Hypertension. 3. Obesity. 4. LV dysfunction. Otherwise, from my point of view, the patient to be discharged. The patient also has anxiety state, depression, and the patient had a craniotomy three years ago. MD JIMMY Pleitez/PACO /[id number]
--- NOTE | 2019-05-24 18:56 | NUR ---
PATIENT IN STABLE CONDITION WITH NO S/S OF RESPIRATORY DISTRESS-NO PAIN VOICED. WALKER AVAILABLE FOR PATIENT NEAR BEDSIDE. CALL LIGHT IS WITHIN REACH, PATIENT INSTRUCTED TO CALL FOR ASSISTANCE NEEDED. REPORT GIVEN TO ONCOMING NURSE.
--- NOTE | 2019-05-24 19:09 | NUR ---
bedside SBAR report received from Sejal RN, patient AOX3, sitting cross-legged in bed, respiratory in room, no distress noted, patient report pain level tolerable, walker at bedside, per PT evaluation today noted right sided weakness noted, advised to call when needing assistance for BRP's, bed in lowest position, call light within reach
--- NOTE | 2019-05-24 21:12 | NUR ---
patient seen walking with walker out into hallway, noncompliance with call light, advised patient to call for assistance before attempting to walk the hallway, states "I forgot", pt requesting sandwich, pudding and juices, request carried out, return to her room w/o incident, call light placed on bed within patient reach, bed alarm activated
[2019-05-24] MEDS: SENNOSIDES 8.6 MG TAB PO SCH (21:15)
[2019-05-24] MEDS: TRAZODONE HCL 50 MG TAB PO SCH (21:15)
[2019-05-24] MEDS: QUETIAPINE FUMARATE 100 MG TAB PO SCH (21:15)
[2019-05-24] MEDS: CITALOPRAM HYDROBROMIDE 20 MG TAB PO SCH (21:15)
[2019-05-25] VITALS (10 sets, daily range): BP systolic 94–138; BP diastolic 50–86
[2019-05-25] MEDS: ENOXAPARIN SODIUM INJ 100 MG/ML SYR SC SCH ×2 (02:05→14:43)
[2019-05-25] MEDS: ALBUTEROL/IPRATROPIUM 3 ML NEB NEB SCH ×3 (02:38→13:15)
--- NOTE | 2019-05-25 04:58 | NUR ---
routine 0400 vitals check, patient noted sleeping, SP02@90, intervention occured patient awakn w/o difficulty, placed on 3 liters oxygen therapy via Nasal Cannula, sat reevaluated @81016 SP02@94, patient advised to keep O2 on, verbally stated "OK"
--- NOTE | 2019-05-25 06:59 | NUR ---
bedside SBAR report given to Sejal RN, patient AOX3, no distress noted, patient compliant with oxygen therapy walker at bedside patient sleeping during shift report, bed in lowest position, call light within reach
--- NOTE | 2019-05-25 07:05 | NUR ---
PATIENT IS IN STABLE CONDITION WITH NO S/S OF RESPIRATORY DISTRESS. PATIENT DENIES PAIN. 02 APPLIED AT 3L NC. WALKER AVAILABLE FOR PATIENT NEAR BEDSIDE. CALL LIGHT IS WITHIN REACH OF PATIENT, PATIENT INSTRUCTED TO CALL FOR ASSISTANCE NEEDED.
[2019-05-25] MEDS: POTASSIUM CHLORIDE 20 MEQ TAB CR PO SCH (08:15)
[2019-05-25] MEDS: LEVETIRACETAM 500 MG TAB PO SCH (08:16)
[2019-05-25] MEDS: ASPIRIN 81 MG ENTERIC COATED PO SCH (08:16)
[2019-05-25] MEDS: HYDROXYZINE HCL 25 MG TAB PO SCH (08:16)
[2019-05-25] MEDS: METOPROLOL TARTRATE 25 MG TAB PO SCH (08:18)
[2019-05-25] MEDS: TOPIRAMATE 25 MG TAB PO SCH (08:18)
[2019-05-25] MEDS: PREGABALIN 75 MG CAP PO SCH (08:18)
[2019-05-25] MEDS ORDERED: LISINOPRIL 10 MG TAB PO ONE (09:00)
[2019-05-25] MEDS ORDERED: FUROSEMIDE INJ 10 MG/ML 2 ML VIAL IV SCH (09:00)
[2019-05-25] MEDS: AZITHROMYCIN 500MG/NS 250 ML 250 ML IV SCH (09:15)
--- NOTE | 2019-05-25 10:09 | NUR ---
CALLED AND SPOKE WITH DR. STRAUSS REGARDING DISCHARGE PLAN. DR. STRAUSS STATED TO THE RN TO RECEIVE CLEARANCE FROM DR. RUBIO TODAY. IF CLEARANCE IS RECEIVED FROM MIKE WARNER TO DISCHARGE THE PATIENT HOME PER DR. STRAUSS.
--- NOTE | 2019-05-25 12:03 | NUR ---
CALL PLACED OUT TO DR. RUBIO REGARDING DISCHARGE CLEARANCE- AWAITING CALLBACK.
--- NOTE | 2019-05-25 12:54 | NUR ---
CALL PLACED OUT AGAIN TO DR. RUBIO FOR DISCHARGE CLEARANCE PER DR. STRAUSS- AWAITING BACK.
--- NOTE | 2019-05-25 15:09 | NUR ---
CM SPOKE WITH DR RAMIRO OKEEFE TO DISCHARGE PT FROM HIS STANDPINT WITH F/U IN 1 WEEK
[2019-05-25] MEDS: CEFTRIAXONE SOD 1 GM/NS 50 ML 50 ML IV SCH (16:00)
--- NOTE | 2019-05-25 16:56 | NUR ---
PATIENT DISCHARGE HOME (RETURNING TO [facility]). PATIENT OFF THE UNIT AT 1618 PER WHEELCHAIR ACCOMPANIED TO THE FRONT LOBBY BY PCT. PATIENT IN STABLE CONDITION WITH NO S/S OF RESPIRATORY DISTRESS. NO PAIN VOICED. IV REMOVED WITH TIP INTACT. DISCHARGE TEACHING AND INSTRUCTIONS GIVEN TO THE PATIENT. ALL PERSONAL ITEMS TAKEN WITH THE PATIENT.
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
== END 2019-05-25 16:18 | disposition home or self-care (01) | DRG 195 ==
LOC: ER 00:39 → ERHOLD 04:20 → MED/SURG2 04:22
PROVIDERS: ADMIT Internal Medicine; ATTEND Internal Medicine
DX: J18.9 Pneumonia, unspecified organism (principal); J20.9 Acute bronchitis, unspecified; Z68.34 Body mass index [BMI] 34.0-34.9, adult; E66.01 Morbid (severe) obesity due to excess calories; D18.09 Hemangioma of other sites; I10 Essential (primary) hypertension; F10.21 Alcohol dependence, in remission; I27.20 Pulmonary hypertension, unspecified; F32.9 Major depressive disorder, single episode, unspecified; F41.9 Anxiety disorder, unspecified; G40.909 Epilepsy, unspecified, not intractable, without status epilepticus; M54.5 Low back pain; G89.29 Other chronic pain; R09.02 Hypoxemia
CPT/HCPCS: 36415; 71046; 71250; 80048; 80053; 82550; 82553; 82948; 83518; 83880; 84484; 85025; 87070; 87400; 93005; 93306; 94640; 97139; 99284; J0456; J0696; J1650; J1940; J2270; J2405; J3410; J7050

== ENCOUNTER 2024-09-13 17:46 | Emergency (ER) | payer MEDICARE, BC ==
[~2024-09-13] VITALS: Ht 182.9 cm; Wt 115.7 kg
[~2024-09-13 17:46] MED LIST: ALPRAZOLAM0.5 MG PO; BUTALB-ACETAMI1 EACH; CITALOPRAM HBR40 MG; HYDROXYZINE HCL25 MG PO; HYDROXYZINE25 MG/ML PO; LEVETIRACETAM500 MG PO; LYRICA75 MG PO; MAGNESIUM GLUC; MELOXICAM7.5 MG PO; Morphine IR PO; PROAIR DIGIHAL90 MCG INH; QUETIAPINE FUM100 MG PO; TOPIRAMATE25 MG PO; TRAZODONE HCL50 MG PO
[2024-09-13 18:33] VITALS: PULSE 94; RESP 18; TEMP 97.8
[2024-09-13 18:59] LABS: BASOPHILS % 0.7 % (0.0-1.0); EOSINOPHILS # (AUTO) 0.2 (0.0-0.4); EOSINOPHILS % 2.7 % (0.0-6.0); HEMATOCRIT 41.6 % (34.2-44.1); HEMOGLOBIN 13.5 g/dL (12.0-16.0); LYMPHOCYTES # (AUTO) 1.5 (1.0-3.2); LYMPHOCYTES % 27.2 % (18.0-39.1); MEAN CORPUSCULAR HGB CONC 32.5 g/dL (31-35); MEAN CORPUSCULAR VOLUME 95.4 fL (81-99); MONOCYTES # (AUTO) 0.4 (0.2-0.8); MONOCYTES % 7.6 % (4.4-11.3); NEUTROPHILS # (AUTO) 3.4 (2.1-6.9); NEUTROPHILS % 61.4 % (38.7-80.0); PLATELET COUNT 222 x10e3/uL (140-360); RED BLOOD COUNT 4.36 x10e6/uL (3.6-5.1); RED CELL DISTRIBUTION WIDTH 14.3 % (11.7-14.4); WHITE BLOOD COUNT 5.51 x10e3/uL (4.8-10.8)
[2024-09-13 19:23] LABS: ALANINE AMINOTRANSFERASE 18 IU/L (0-55); ALBUMIN 3.6 g/dL (3.5-5.0); ALBUMIN/GLOBULIN RATIO 0.8 (0.8-2.0); ALKALINE PHOSPHATASE 67 IU/L (40-150); ANION GAP 13.6 mmol/L (8-16); BILIRUBIN,TOTAL 0.6 mg/dL (0.2-1.2); BLOOD UREA NITROGEN 9 mg/dL (7-26); BUN/CREATININE RATIO 9 (6-25); CALCIUM 8.5 mg/dL (8.4-10.2); CARBON DIOXIDE 23 mmol/L (22-29); CHLORIDE 108 mmol/L (98-107); CREATINE KINASE 122 IU/L (29-168); CREATININE, SERUM 0.96 mg/dL (0.57-1.11); EST GLOMERULAR FILTRATION RATE 69 ML/MIN (>=60); GLUCOSE 133 mg/dL (74-118); POTASSIUM 3.6 mmol/L (3.5-5.1); SODIUM 141 mmol/L (136-145); TOTAL PROTEIN 8.2 g/dL (6.5-8.1)
[2024-09-13 19:30] LABS: TROPONIN I < 0.001 ng/mL (0-0.300)
[2024-09-13] MEDS: KETOROLAC TROMETHAMINE 30 MG/ML VIAL IV STA (19:57)
[2024-09-13 20:02] VITALS: O2SAT 97
[2024-09-13 20:30] LABS: CORONAVIRUS COVID-19 AG NEGATIVE (NEGATIVE); INFLUENZA A AG NEGATIVE (NEGATIVE); INFLUENZA B AG NEGATIVE (NEGATIVE)
== END 2024-09-13 20:45 | disposition home or self-care (01) ==
LOC: ER 18:02
DX: R42 Dizziness and giddiness (principal); M25.562 Pain in left knee; M25.462 Effusion, left knee; M25.521 Pain in right elbow; W01.0XXA Fall on same level from slipping, tripping and stumbling without subsequent striking against object, initial encounter; Y93.01 Activity, walking, marching and hiking; Y92.89 Other specified places as the place of occurrence of the external cause; M54.9 Dorsalgia, unspecified; G89.29 Other chronic pain; R94.31 Abnormal electrocardiogram [ECG] [EKG]; G40.909 Epilepsy, unspecified, not intractable, without status epilepticus
CPT/HCPCS: 36415; 70450; 71045; 73562; 80053; 82550; 83690; 83880; 84484; 85025; 87428; 93005; 99284; J1885